=== PATIENT | male | born 1965 | race Caucasian/White ===

== ENCOUNTER 2017-12-20 11:26 | Inpatient (IN) | payer OTHER ==
[~2017-12-20] VITALS: Ht 177.8 cm; Wt 97.7 kg
[~2017-12-20 11:26] MED LIST: AMLODIPINE-BENAZEPRI PO; AUGMENTIN 875-1 EACH PO; MELOXICAM15 MG PO; PREDNISONE50 M1 PO; PRILOSEC OTC20 M1 PO; SERTRALINE HYDR50 MG PO; VENTOLIN HFA18 GM INH
[2017-12-20] MEDS ORDERED: AMLODIPINE BESYL5 M1 PO (11:55)
--- NOTE | 2017-12-20 12:10 | ED CARDIAC/CP/PALPITATIONS ---
History of Present Illness General Chief Complaint: Chest Pain Stated Complaint: CP Source: patient Exam Limitations: no limitations Vital Signs & Intake/Output Vital Signs & Intake/Output Vital Signs Date Time Temp Pulse Resp B/P B/P Pulse O2 O2 Flow FiO2 Mean Ox Delivery Rate 12/20 1723 120 147/88 12/20 1651 103 146/96 12/20 1649 98.8 103 16 146/96 95 Room Air 12/20 1514 113 130/96 12/20 1340 100.8 16 95 Room Air 12/20 1339 116 161/87 12/20 1220 128 140/85 12/20 1151 118 12/20 1136 100.0 139 20 135/83 98 Room Air Allergies Coded Allergies: NO KNOWN ALLERGIES (04/12/15) Reconcile Medications Amlodipine Besylate 5 MG TABLET 1 TAB PO DAILY HEART (Reported) Triage Note: PT TO ED C/O CHEST PAIN SINCE THIS AM. STARTED WHILE LAYING ON COUCH. PAIN IS MIDSTERNAL, NON RADIATING. DENIES N/V. NO SOB OR DIFF BREATHING NOTED. PT STATES HE DRANK YESTERDAY, H/O ETOH ABUSE. EKG DONE, TAKEN TO ROOM 9 FOR FURTHER EVAL. Triage Nurses Notes Reviewed? yes Onset: Gradual Duration: hour(s): Timing: single episode today Quality/Severity: pressure Location: substernal Radiation: no radiation Activities at Onset: rest HPI: 52yo male with hx of alcoholism and DTs, daily tobacco use presents to ED with new onset chest pain beginning this morning around 0830AM. Pain is described substernal, constant since onset, 04/22, pressure, without radiation, arising at rest. Patient reports associated dyspnea today. PAtient also reports diarrhea this morning. Patient also complains of mouth sores for which she has seen a specialist for and was on amoxicillin for 10 days however they have not resolved. Patient states he had a drink yesterday, prior to that he was in remission from alcohol. Patient denies abdominal pain, vomiting, diaphoresis, leg swelling, recent travel, hemoptysis. (Keren ZAMORA,Isabela Galan) Past History Travel History Traveled to [place] past 21 day No Medical History Any Pertinent Medical History? 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 No (Isabela Vazquez) Review of Systems Review of Systems Constitutional: Reports: no symptoms. EENTM: Reports: see HPI. Respiratory: Reports: see HPI. Cardiovascular: Reports: see HPI. GI: Reports: no symptoms. Genitourinary: Reports: no symptoms. Musculoskeletal: Reports: no symptoms. Skin: Reports: no symptoms. Neurological/Psychological: Reports: no symptoms. Hematologic/Endocrine: Reports: no symptoms. Immunologic/Allergic: Reports: no symptoms. All Other Systems: Reviewed and Negative (Isabela Vazquez) Physical Exam Physical Exam General Appearance: well developed/nourished, no apparent distress, alert, awake Head: atraumatic, normal appearance Eyes: Bilateral: normal appearance. Ears, Nose, Throat: hearing grossly normal, ulcerations/vesicles Neck: normal inspection, supple, full range of motion Respiratory: no respiratory distress, wheezing bilaterally, anterior chest tenderness Cardiovascular: tachycardia Peripheral Pulses: 2+ radial (R), 2+ radial (L) Gastrointestinal: normal bowel sounds, soft, non-tender, no organomegaly Rectal: heme positive stool Back: normal inspection, normal range of motion Extremities: normal inspection, normal range of motion Neurologic/Psych: awake, alert, oriented x 3 Skin: intact, warm/dry Core Measures ACS in differential dx? Yes CVA/TIA Diagnosis No Sepsis Present: No Sepsis Focused Exam Completed? No (Isabela Vazquez) Progress Differential Diagnosis: AMI, atrial fibrillation, CHF/pulm edema, costochondritis, musculoskeletal pain, myocarditis, pancreatitis, pericarditis, pneumonia, pneumothorax, PSVT, pulmonary embolism, unstable angina, V-fib/V-Tach , alcohol withdrawal, DT Plan of Care: Orders Procedure Date/time Status Regular Diet 12/20 D Active Patient Data 12/20 1649 Active OXYGEN SETUP (GEN) 12/20 163 Active Saline Lock 12/20 1634 Active Admit to inpatient 12/20 1634 Active Vital Signs 12/20 1634 Active Activity/Ambulation 12/20 1634 Active Code Status 12/20 1634 Active Add-on Test (ER Only) 12/20 1626 Active TROPONIN LEVEL 12/20 1515 Complete EKG 12/20 1515 Active Add-on Test (ER Only) 12/20 1222 Active CIWA 12/20 1222 Active URINE DRUG SCREEN FOR ER ONLY 12/20 1222 Complete PARTIAL THROMBOPLASTIN TIME 12/20 1212 Complete PROTHROMBIN TIME 12/20 1212 Complete ETHANOL 12/20 1212 Complete Telemetry/Verifying Machine Operator 12/20 1207 Active TROPONIN LEVEL 12/20 1206 Complete D-DIMER 12/20 1206 Complete COMPREHENSIVE METABOLIC PANEL 12/20 1206 Complete CBC WITHOUT DIFFERENTIAL 12/20 1206 Complete Intake & Output 12/20 1149 Active EKG 12/20 1127 Active Current Medications Sig/[place] Start time Last Medication Dose Stop Time Status Admin Heparin Sodium 25,000 UNIT Q24H 12/20 1645 AC 12/20 (Porcine) 1722 (Heparin) Sodium Chloride 500 ML Heparin Sodium 4,000 UNIT ONCE ONE 12/20 1630 CAN (Porcine) 12/20 1631 (Heparin Bolus) Clonidine 0.1 MG TID 12/20 1600 AC 12/20 (Catapres) 1651 Gabapentin 300 MG Q8 12/20 1400 AC 12/20 (Neurontin) 1404 Laboratory Tests 12/20/17 1515: Troponin I 0.13 *H 12/20/17 1427: Urine Opiates Screen < 100, Methadone Screen < 40, Barbiturate Screen < 60, Ur Phencyclidine Scrn < 6.00, Amphetamines Screen < 100, U Benzodiazepines Scrn < 85, Urine Cocaine Screen < 50, Urine Cannabis Screen < 5.00 12/20/17 1212: Anion Gap 15, Estimated GFR > 60, BUN/Creatinine Ratio 24.3, Glucose 177 H, Calcium 9.4, Total Bilirubin 1.7 H, AST 53, ALT 47, Alkaline Phosphatase 99, Troponin I 0.07, Total Protein 7.1, Albumin 4.2, Globulin 2.9, Albumin/Globulin Ratio 1.4, PT 11.3, INR 1.04, APTT 30, D-Dimer High Sensitivty 295 H, CBC w Diff NO MAN DIFF REQ, RBC 4.82, MCV 96.2 H, MCH 32.9 H, MCHC 34.2, RDW 14.6 H , MPV 7.7, Gran % 88.0 H, Lymphocytes % 4.5 L, Monocytes % 7.3, Eosinophils % 0.1, Basophils % 0.1, Absolute Granulocytes 11.4 H, Absolute Lymphocytes 0.6 L , Absolute Monocytes 0.9 H, Absolute Eosinophils 0, Absolute Basophils 0, Serum Alcohol < 10.0 Patient EKG shows nonspecific changes and leads V1 -2, troponin enzyme is negative. EKG reviewed with Dr. Rodriguez. Patient's d-dimer is slightly elevated, will obtain CTA to further rule out pulmonary embolism. Initial CIWA score is 11, patient given Ativan IV, started on clonidine and gabapentin per Dr. Rodriguez. CTA is negative for acute pulmonary embolism at this time. Patient reports improvement in chest pain from 8/10 to 6/10 following 1 SL nitroglycerin, patient seen sleeping while awaiting test results. Patient requesting food tray. Repeat troponin shows elevation from 0.07 to 0.13. Awaiting cardiology page. Spoke with cardiology Aries Kenyon MD regarding this patient, he recommends heparin and aspirin. Stool is guaiac positive however patient's coags are normal, we will initiate heparin at this time. Dr. Rodriguez spoke with hospitalist regarding this patient's telemetry admission. Diagnostic Imaging: Viewed by Me: Radiology Read. Discussed w/RAD: Radiology Read. CXR Impression: PATIENT: CHIDI BA PRESENT AGE: 52 PATIENT ACCOUNT NO: [id number] : 67 LOCATION: [facility] ORDERING PHYSICIAN: Isabela ZAMORA SERVICE DATE: 12/20/17 EXAM TYPE: RAD - XRY-CHEST XRAY, TWO VIEWS EXAMINATION: XR CHEST CLINICAL INFORMATION: Chest pain. Assess for cardiopulmonary pathology. COMPARISON: Chest x-ray 12/03/2017. TECHNIQUE: 2 views of the chest were obtained. FINDINGS: The lung kulkarni are hypoexpanded but appear clear bilaterally. The cardiac silhouette is normal. There are no pleural effusions or pneumothorax. The central pulmonary vasculature is normal. The hilar regions appear normal. There are degenerative changes of the acromioclavicular joints and there are multilevel spondylitic changes in the thoracic spine. IMPRESSION: 1. There are no acute cardiopulmonary findings. DICTATED BY: Darion Sales MD DATE/TIME DICTATED:12/20/171334 ANESTHESIOLOGY TECHNOLOGIST :REBECCA DATE/TIME TRANSCRIBED:12/20/171334 CONFIDENTIAL, DO NOT COPY WITHOUT APPROPRIATE AUTHORIZATION. <Electronically signed in Other Vendor System> SIGNED BY: Darion Sales MD 12/20/17 1349 Initial ED EKG: sinus tachycardia @135bpm, ST changes V1-V2 Prior EKG: changed (12/03/17) Repeat EKG: changed (slight ST changes V1-V2) (Isabela Vazquez) Departure Departure Disposition: STILL A PATIENT Condition: Stable Clinical Impression Primary Impression: Acute coronary syndrome Secondary Impressions: Alcohol withdrawal Qualifiers: Complication of substance-induced condition: with unspecified complication Qualified Code: F10.239 - Alcohol dependence with withdrawal, unspecified Chest pain Qualifiers: Chest pain type: chest pain due to myocardial ischemia Ischemic chest pain type: unspecified angina pectoris type Qualified Code: I25.9 - Chronic ischemic heart disease, unspecified Hard palate ulcer Referrals: Niles Abdi MD Departure Forms: Customer Survey General Discharge Information Admission Note Spoke With: Tammie Jean-Baptiste MD Documentation of Exam: Documentation of any treatments & extenuating circumstances including Concerns Regarding Discharge (functional status, medication knowledge or non-compliance, living conditions, etc.) that warrant an admission rather than observation: [ Acute coronary syndrome requiring IV heparinization, telemetry monitoring, cardiology consult, repeat troponins and EKGs, alcohol withdrawal requiring CIWA evaluation, premature discharge medically unsafe] (Isabela Vazquez) PA/FEED MIXER HELPER Co-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 I have also reviewed all the pertinent lab results and diagnostic results. I agree with the findings and the plan of care as documented in the PA's/FEED MIXER HELPER's documentation. SSCP, PMHx HTN, alcoholism with + troponin, EKG changes and withdrawal [] I have reviewed the ED Record and agree with the PA's/FEED MIXER HELPER's documentation. [] Additions or exceptions (if any) to the PAs/FEED MIXER HELPER's note and plan are summarized below: [] (Orlando GARCIA,Jamel) Critical Care Note Critical Care Note Critical Care Time: 30-74 min (Isabela Vazquez)
[2017-12-20 12:23] LABS: ABSOLUTE BASOPHIL COUNT 0 /CUMM (0.0-0.2); ABSOLUTE EOSINOPHIL COUNT 0 /CUMM (0.0-0.7); ABSOLUTE GRANULOCYTE CT 11.4 /CUMM (1.4-6.5); ABSOLUTE LYMPH COUNT 0.6 /CUMM (1.2-3.4); ABSOLUTE MONOCYTE COUNT 0.9 /CUMM (0.10-0.60); BASOPHIL % 0.1 % (0.0-2.0); EOSINOPHIL % 0.1 % (0-5); HEMATOCRIT 46.4 % (42-52); MEAN CORPUSCULAR HGB 32.9 PG (27.0-31.0); MEAN CORPUSCULAR HGB CONC 34.2 G/DL (33.0-37.0); MEAN CORPUSCULAR VOLUME 96.2 FL (80.0-94.0); MEAN PLATELET VOLUME 7.7 FL (7.4-10.4); PLATELET COUNT 273 /CUMM (130-400); RBC DISTRIBUTION WIDTH 14.6 % (11.5-14.5); RED BLOOD CELL CT 4.82 /CUMM (4.70-6.10); WHITE BLOOD CELL COUNT 12.9 /CUMM (4.8-10.8)
--- NOTE | 2017-12-20 13:49 | RADIOLOGY REPORT ---
EXAMINATION: XR CHEST CLINICAL INFORMATION: Chest pain. Assess for cardiopulmonary pathology. COMPARISON: Chest x-ray 12/03/2017. TECHNIQUE: 2 views of the chest were obtained. FINDINGS: The lung kulkarni are hypoexpanded but appear clear bilaterally. The cardiac silhouette is normal. There are no pleural effusions or pneumothorax. The central pulmonary vasculature is normal. The hilar regions appear normal. There are degenerative changes of the acromioclavicular joints and there are multilevel spondylitic changes in the thoracic spine. IMPRESSION: 1. There are no acute cardiopulmonary findings.
--- NOTE | 2017-12-20 14:40 | CT SCAN REPORT ---
EXAMINATION: CT ANGIOGRAM OF THE CHEST WITH AND WITHOUT CONTRAST (CT PULMONARY ANGIOGRAM FOR PE) CLINICAL INFORMATION: Reason for Study:
Presumptive Dx: R/O PE
Signs Symptoms: CHEST PAIN, DYSPNEA
COMPARISON: Chest x-ray done today (no acute disease) and CTA of the chest on 12/03/2016. (No pulmonary emboli). TECHNIQUE: Prior to contrast administration, noncontrast localization images were obtained. Subsequently, multidetector volumetric imaging was performed from the thoracic inlet to below the diaphragms following the administration of 95 mL Optiray 320 intravenous contrast. No contrast reaction reported. Sagittal, coronal, and MIP oblique sagittal reformatted images were obtained on the CT workstation, uploaded to PACS, and reviewed. Total exam dose-length product 500 mGy-cm. FINDINGS: QUALITY OF STUDY/CONTRAST BOLUS: Less than satisfactory due to the levo phase of the injection. (Similar to last exam on 12/03/2017). PULMONARY ARTERIES: No central or segmental pulmonary emboli. THORACIC AORTA: Bovine arch. LUNG: No focal consolidation, nodules or masses. PLEURA: No pleural effusion or pneumothorax. MEDIASTINUM: Normal heart size. No pericardial effusion. No hilar or mediastinal lymphadenopathy. No evidence of septal bowing or right heart strain. CHEST WALL/AXILLA: No axillary or internal mammary lymphadenopathy. OSSEOUS STRUCTURES: Again there are bridging osteophytes of the lower thoracic spine to the right midline. Nucleus pulposus is calcified at the level of T8-T9. UPPER ABDOMEN: Again there is diffuse fatty infiltration of liver. No reflux of contrast into the hepatic veins to suggest elevated right heart pressures. IMPRESSION: No evidence of pulmonary embolism. Fatty infiltration of the liver as before. VTE: Negative.
[2017-12-20 16:48] LABS: PT 11.3 SEC (9.4-12.5); PTT 30 SEC (25-37)
--- NOTE | 2017-12-20 16:56 | History & Physical ---
Brandon GARCIA,[facility] 12/20/17 0066: General Information and HPI MD Statement: I have seen and personally examined CHIDI BA and documented this H&P. The patient is a 52 year old M who presented with a patient stated chief complaint of [chest pain]. History of Present Illness: 52-year-old male with a past medical history of alcohol abuse, hypertension, depression, presenting for chest pain. The patient states that he woke up fine this morning but then had an sudden onset of sternal chest pain. The patient states that the chest pain was continued until he got to the emergency department which is now intermittent. The patient describes as sharp and worse with breathing. States he never had this before. States that the pain is a 6-8 but right now it does not have any pain as the medications given the ED have help with the pain. The patient states that he does not have a history of any myocardial infarctions. He does state that he has a history of an echo for possible valvular issues. The patient endorses feeling tachycardic, shortness of breath, slight fever, loose black stools with mucus. The patient denies any chills, blurry vision. The patient states that he stopped smoking 3-1/2 years ago but restarted smoking in October. Since October he's been smoking half pack per day. His previous smoking history was also half pack per day for 35 years. The patient states that he stopped using alcohol in September was started using again yesterday and today. States that he had 1 pint of vodka yesterday. The patient states that he has never withdrawn before. States that he has had one prior admission for alcohol detox several years back. The patient states that 12 days ago he was treated with amoxicillin for strep throat. The patient finished his 10 day course of antibiotics. States that he has had these upper hard palate ulcers due to postnasal drip. States that he only has one sexual partner and denies any recent penile discharge. 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 Exam & Diagnostic Data Last 24 Hrs of Vital Signs/I&O Vital Signs Date Time Temp Pulse Resp B/P B/P Pulse O2 O2 Flow FiO2 Mean Ox Delivery Rate 12/20 1851 98.4 104 18 135/85 96 12/20 1827 103 12/20 1748 111 12/20 1723 120 147/88 12/20 1651 103 146/96 12/20 1649 98.8 103 16 146/96 95 Room Air 12/20 1514 113 130/96 12/20 1340 100.8 16 95 Room Air 12/20 1339 116 161/87 12/20 1220 128 140/85 12/20 1151 118 12/20 1136 100.0 139 20 135/83 98 Room Air Intake & Output 12/20 1600 12/20 0800 12/20 0000 Intake Total 1000 Output Total 500 Balance 500 Intake, IV 1000 Output, Urine 500 Patient 200 lb Weight Weight Reported by Patient Measurement Method Physical Exam General Appearance Alert, Oriented X3, Cooperative, No Acute Distress Skin R frontal head bruise HEENT b/l upper hard palate ulcers. 1.5x1cm b/l. white base. Neck no lymphadenoapthy Cardiovascular tachycardia Lungs Clear to Auscultation, Normal Air Movement Abdomen decreased bowel sounds Neurological cn2-12 grossly intact Extremities no LE edema Vascular 2+ radial pulses Assessment/Plan Assessment: 52-year-old male with a past medical history of alcohol abuse, hypertension, depression, presenting for chest pain with elevated troponins. #NSTEMI: Chest pain with elevated troponins Trop .07, .13 -trop ekg x3 -Continue IV heparin, aspirin, atorvastatin, pain control, metoprolol -cont nitro -Follow-up cardiology consult #alcohol detox Utox negative -CIWA and ativan per CIWA -f/u psych and sw consult #oral ulcers -Continue to monitor for any signs of infection. -Appears to be necrotizing sialometaplasia due to allergies/post nasal drip -start lidocaine oral rinse #Elevated T bili T bili 1.7, direct 0.5, LFTs normal -cont to monitor #htn -start clonidine #hyperglycemia glucose 177 -f/u hgba1c #leukocytosis 12.9 -possibly reactive vs infxn of mouth -cont to monitor #mild hyponatremia 133 -cont to monitor #FULL CODE #DVT ppx heparin drip As Ranked By This Provider Problem List: 1. Alcohol withdrawal Qualifiers Complication of substance-induced condition: with unspecified complication Qualified Code: F10.239 - Alcohol dependence with withdrawal, unspecified 2. Acute coronary syndrome 3. Hard palate ulcer Core Measures/Misc (05/30) Acute Coronary Syndrome ACS Diagnosis: Yes Congestive Heart Failure Congestive Heart Failure Diagnosis No Cerebrovascular Accident CVA/TIA Diagnosis: No VTE (View Protocol) VTE Risk Factors No risk factors No Mechanical VTE Prophylaxis d/t Other No VTE Pharm Prophylaxis d/t NA PharmProphylax ordered Sepsis (View protocol) Sepsis Present: No [facility] 1931: Resident Review Statement Resident Statement: examined this patient, discussed with paid internship, agreed with paid internship, discussed with nursing Other Findings: Patient is a 52-year-old male with past medical history significant for hypertension, alcohol dependence who presented to ED with chief complaint of sudden onset chest pain. Patient reported sudden onset of sharp retrosternal chest pain while resting on the couch, does not radiate to the left arm or jaw, associated with shortness of breath and palpitation but no diaphoresis. Patient denied any prior history of similar pain. Reported having echocardiogram years ago for "abnormal valvular movement" with negative results. Patient reported one episode of black watery stool yesterday, not associated with abdominal pain, nausea or vomiting. He also reported recent strep throat infection 12 days ago, was treated as an outpatient with amoxicillin for 10 days , patient has new onset developing hard palate ulcers, 1.5/1 cm, bleeding with purulent discharge that started 12 days ago. Patient reported improvement of his symptoms. Patient denied any past history of similar mouth ulcers, history of penile discharge or genital ulcer, STDs, multiple sexual partners. Patient last alcohol drinking was yesterday, he drank 1 pint of vodka. He quit drinking in September 2017 (detoxing himself )however restarted 2 days ago. Denied any history of TDs, alcohol-related seizures, ICU admission for alcohol detox or any previous intubation. Assessment 52-year-old male with past medical history of alcohol dependence and hypertension who presented with sudden onset of chest pain, initial troponin is 0.07 that trended up to 0.13 with new EKG changes of minimal ST elevation in lead V1, V2 and V3 with QRS prolongation V1 and V2 suspicious for new onset left bundle branch block. Patient symptoms improved with nitroglycerin and morphine. 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 -Patient has mildly elevated total bilirubin 1.7, will obtain direct and indirect bilirubin -Consider obtaining abdominal ultrasound -CIWA score -Ativan 2 mg Q6 hours -Ativan per CIWA -Thiamine 100 mg IV 3 days and then thiamine p.o. 100 mg 3 times daily for 1 week -1 bag of normal saline, patient is mildly dehydrated -Lidocaine viscous liquid for mouth ulcer -Code full -DVT prophylaxis heparin IV and Alps -Diet heart healthy #I spoke with the range technician on-call Dr. Oliveira after we received third tropes elevated to 0.21 from 0.13, EKG continue to be the same, patient remained Asymptomatic after receiving nitroglycerin and morphine. Recommendation to keep patient on IV heparin since he is asymptomatic with no further EKG changes. Tammie Jean-Baptiste MD 12/20/17 2226: Attending MD Review Statement Attending Statement Attending MD Statement: examined this patient, discuss w/resident/PA/MANAGER CASE, agreed w/resident/PA/MANAGER CASE, reviewed EMR data (avail) Attending Assessment/Plan: 52M PMH HTN, alcohol use disorder presenting with chest pain at rest since this morning. Mid-sternal, non-radiating, 7/10, associted with diaphoresis but not SOB or palpitations, not worse wiwth exertion. No family or personal history of CAD, active smoker. Showing signs of agitation and alcohol withdrawal. EKG shows non-specific changes with widening of QRS in anterior leads and questionable ST elevations. Troponin 0.13. Also complains of painful sores on hard palate. 1. NSTEMI 2. Alcohol withdrawal, uncomplicated 3. Aphthous ulcers of the hard palate Plan - Admit to telemetry - ASA, statin, b-aide - Heparin drip - Echocardiogram - Cardiology consult - Ativan PRN CIWA - SL Nitro - Send HSV 1 and 2 antibodies - Continue home meds - DVT PPx
[2017-12-20 21:57] VITALS: BP 136/83
[2017-12-20 22:00] VITALS: BP 136/83
[2017-12-21 01:53] LABS: PTT 31 SEC (25-37)
--- NOTE | 2017-12-21 07:11 | PN- Housestaff ---
Rian GARCIA,Valentin 12/21/17 0711: Subjective Follow-up For: ACS Alcohol withdrawal oral ulcer Tele-Events Since Last Visit: unable to access recorded telemetry monitoring in ED, per nurse, NSR Subjective: Patient was seen and examined at bedside. He was resting comfortably. He had no acute events overnight. He reports that the chest discomfort which she describes as a tightness significantly improved although not completely resolved , he currently described as mild and upon presentation it was severe. He also reports mild pain in his mouth at the site of the ulcer. He denies any shortness of breath, nausea, vomiting, fever, chills. Review of Systems Constitutional: Denies: chills, malaise. EENTM: Reports: no symptoms, mouth pain. Cardiovascular: Reports: see HPI, chest pain (mild tightness). Respiratory: Denies: cough, short of breath. Gastrointestinal: Reports: no symptoms. Genitourinary: Reports: no symptoms. Musculoskeletal: Reports: no symptoms. Skin: Reports: no symptoms. Objective Last 24 Hrs of Vital Signs/I&O Vital Signs Date Time Temp Pulse Resp B/P B/P Pulse O2 O2 Flow FiO2 Mean Ox Delivery Rate 12/20 2200 98.7 102 21 136/83 12/20 2157 98.7 102 21 136/83 94 Room Air 12/20 2141 105 136/83 12/20 2141 105 136/83 12/20 1851 98.4 104 18 135/85 96 12/20 1827 103 12/20 1748 111 12/20 1723 120 147/88 12/20 1651 103 146/96 12/20 1649 98.8 103 16 146/96 95 Room Air 12/20 1514 113 130/96 12/20 1340 100.8 16 95 Room Air 12/20 1339 116 161/87 12/20 1220 128 140/85 12/20 1151 118 12/20 1136 100.0 139 20 135/83 98 Room Air Intake & Output 12/21 0800 12/21 0000 12/20 1600 Intake Total 595 1000 Output Total 500 Balance 595 500 Intake, IV 255 1000 Intake, Oral 340 Output, Urine 500 Patient 200 lb 200 lb Weight Weight Reported by Patient Reported by Patient Measurement Method Physical Exam General Appearance: Oriented X3, Cooperative, No Acute Distress, slightly lethargic, able to answer questions appropriately HEENT: ecchymosis on the R forehead, ulceration of the hard palate Neck: Supple, No JVD Cardiovascular: Regular Rate, Normal S1, Normal S2 Lungs: Clear to Auscultation, Normal Air Movement Abdomen: Normal Bowel Sounds, Soft, No Tenderness Neurological: Normal Speech, Strength at 5/5 X4 Ext, Normal Tone, Sensation Intact, Cranial Nerves 3-12 NL Extremities: No Clubbing, No Cyanosis, No Edema Current Medications: Current Medications Sig/[place] Start time Last Medication Dose Route Stop Time Status Admin Aspirin 81 MG DAILY 12/21 1000 AC PO Aspirin 325 MG ONCE ONE 12/20 1630 DC 12/20 PO 12/20 1631 1651 Atorvastatin Calcium 40 MG 1700 12/20 1845 AC 12/20 PO 2026 Clonidine 0 .STK-MED ONE 12/20 2133 DC PO Clonidine 0.1 MG TID 12/20 1600 AC 12/20 PO 2141 Gabapentin 0 .STK-MED ONE 12/21 0641 DC PO Gabapentin 0 .STK-MED ONE 12/20 2131 DC PO Gabapentin 0 .STK-MED ONE 12/20 1407 DC PO Gabapentin 300 MG Q8 12/20 1400 AC 12/21 PO 0651 Heparin Sodium 0 .STK-MED ONE 12/21 0237 DC (Porcine) .ROUTE Heparin Sodium 5,500 UNIT ONCE ONE 12/21 0230 DC 12/21 (Porcine) IV 12/21 0231 0237 Heparin Sodium 0 .STK-MED ONE 12/20 1708 DC (Porcine) .ROUTE Heparin Sodium 5,000 UNIT ONCE ONE 12/20 1645 DC 12/20 (Porcine) IV 12/20 1646 1723 Heparin Sodium 25,000 UNIT Q24H 12/20 1645 AC 12/20 (Porcine) IV 1722 Sodium Chloride 500 ML Heparin Sodium 4,000 UNIT ONCE ONE 12/20 1630 CAN (Porcine) IV 12/20 1631 Heparin Sodium/ 25,000 UNIT Q24H 12/20 1630 DC Dextrose IV Dextrose/Water 500 ML Lidocaine 15 ML BID 12/20 2200 AC PO Lidocaine 0 .STK-MED ONE 12/20 2135 DC PO Lidocaine 0 .STK-MED ONE 12/20 1708 DC PO Lidocaine 15 ML ONCE ONE 12/20 1700 DC 12/20 PO 12/20 1701 1723 Lorazepam 0 .STK-MED ONE 12/21 0642 DC PO Lorazepam 0 .STK-MED ONE 12/20 2359 DC PO Lorazepam 2 MG Q6 12/20 1845 AC 12/21 PO 0651 Lorazepam 0 Q1P PRN 12/20 1845 AC IV Lorazepam 0 .STK-MED ONE 12/20 1256 DC .ROUTE Lorazepam 1 MG ONCE ONE 12/20 1245 DC 12/20 IV 12/20 1246 1254 Metoprolol Tartrate 25 MG BID 12/20 2200 AC 12/20 PO 2141 Metoprolol Tartrate 0 .STK-MED ONE 12/20 2134 DC PO Metoprolol Tartrate 0 .STK-MED ONE 12/20 1708 DC PO Metoprolol Tartrate 25 MG ONCE ONE 12/20 1700 DC 12/20 PO 12/20 1701 1723 Morphine Sulfate 2 MG Q4P PRN 12/20 1830 AC IV Morphine Sulfate 0 .STK-MED ONE 12/20 1708 DC .ROUTE Morphine Sulfate 4 MG ONCE ONE 12/20 1700 DC 12/20 IV 12/20 1701 1723 Nitroglycerin 0.4 MG Q 5 MINUTES X 3 DO.. 12/20 1845 AC SL Nitroglycerin 0.4 MG ONCE ONE 12/20 1630 DC 12/20 SL 12/20 1631 1652 Nitroglycerin 0 .STK-MED ONE 12/20 1456 DC SL Nitroglycerin 0.4 MG ONCE ONE 12/20 1445 DC 12/20 SL 12/20 1446 1451 Sodium Chloride 1,000 ML .[id number] 12/20 1830 AC 12/20 IV 12/21 0749 1858 Sodium Chloride 1,000 ML BOLUS ONE 12/20 1315 DC 12/20 IV 12/20 1514 1310 Thiamine HCl 100 MG 2100 12/20 2100 AC 12/20 Sodium Chloride 50 ML IV 12/22 2159 2141 Last 24 Hrs of Lab/Yash Results Last 24 Hrs of Labs/Mics: Laboratory Tests 12/21/17 0607: Sodium Pending, Potassium Pending, Chloride Pending, Carbon Dioxide Pending, Anion Gap Pending, BUN Pending, Creatinine Pending, BUN/Creatinine Ratio Pending , Troponin I Pending, APTT Pending, CBC w Diff Pending, WBC Pending, RBC Pending , Hgb Pending, Hct Pending, MCV Pending, MCH Pending, MCHC Pending, RDW Pending, Plt Count Pending, MPV Pending 12/21/17 0053: Troponin I 0.21 *H, APTT 31 12/20/17 1840: Troponin I 0.21 *H 12/20/17 1515: Total Bilirubin 1.6 H, Direct Bilirubin 0.5 H, Troponin I 0.13 *H 12/20/17 1427: Urine Opiates Screen < 100, Methadone Screen < 40, Barbiturate Screen < 60, Ur Phencyclidine Scrn < 6.00, Amphetamines Screen < 100, U Benzodiazepines Scrn < 85, Urine Cocaine Screen < 50, Urine Cannabis Screen < 5.00 12/20/17 1212: Anion Gap 15, Estimated GFR > 60, BUN/Creatinine Ratio 24.3, Glucose 177 H, Calcium 9.4, Total Bilirubin 1.7 H, AST 53, ALT 47, Alkaline Phosphatase 99, Troponin I 0.07, Total Protein 7.1, Albumin 4.2, Globulin 2.9, Albumin/Globulin Ratio 1.4, PT 11.3, INR 1.04, APTT 30, D-Dimer High Sensitivty 295 H, CBC w Diff NO MAN DIFF REQ, RBC 4.82, MCV 96.2 H, MCH 32.9 H, MCHC 34.2, RDW 14.6 H , MPV 7.7, Gran % 88.0 H, Lymphocytes % 4.5 L, Monocytes % 7.3, Eosinophils % 0.1, Basophils % 0.1, Absolute Granulocytes 11.4 H, Absolute Lymphocytes 0.6 L , Absolute Monocytes 0.9 H, Absolute Eosinophils 0, Absolute Basophils 0, Serum Alcohol < 10.0 Orders CIWA Score (last 24 hrs): 2-11 Assessment/Plan Assessment: Patient is a 52-year-old male with a PMH significant for alcohol use disorder, HTN, depression and presented to the [facility] ED with chest pain, described as a tightness and severe in nature. #NSTEMI Troponins elevated, 0.07, 0.13, 0.21, 0.21, 0.52, patient was put on IV heparin last night after consulting cardiology -Continue IV heparin, aspirin, statin, nitroglycerin, metoprolol -Trend troponin until peaked -Follow cardiology recommendations #Alcohol use disorder, with alcohol withdrawal -Continue CIWA protocol -Follow-up psych and social work consults #Hypokalemia -Repleted orally -Continue to Follow BEP #guaiac + stool -GI consult #HTN Clotted started yesterday -Continue current regimen and monitor BEP closely #Hyperglycemia -Follow-up hemoglobin A1c #Oral ulcer -Continue pain management with lidocaine oral rinse #Hyponatremia, resolved #Leukocytosis, resolved Diet: Nothing by mouth pending cardiology evaluation DVT prophylaxis: Heparin CODE STATUS: Full code Problem List: 1. Hard palate ulcer 2. Acute coronary syndrome 3. Alcohol withdrawal Pain Ratin Pain Location: chest Pain Goal: Pain 4 or less Pain Plan: pain pathway Tomorrow's Labs & Rationales: cbc, bep, trop (trend until peaked) Tammie Jean-Baptiste MD 12/21/17 1056: Attending MD Review Statement Attending Statement Attending MD Statement: examined this patient, discuss w/resident/PA/[employer], agreed w/resident/PA/[employer] TE[employer]ER, reviewed EMR data (avail) Attending Assessment/Plan: 52M PMH HTN, alcohol use disorder presenting with chest pain at rest since this morning. Mid-sternal, non-radiating, 7/, associted with diaphoresis but not SOB or palpitations, not worse wiwth exertion. No family or personal history of CAD, active smoker. Showing signs of agitation and alcohol withdrawal. EKG shows non-specific changes with widening of QRS in anterior leads and questionable ST elevations. Also complains of painful sores on hard palate. Pain is improved. Troponin continues to trend up. No further EKG changes. K is 3.0 today. 1. NSTEMI 2. Alcohol withdrawal, uncomplicated 3. Aphthous ulcers of the hard palate Plan - Continue on telemetry - Aggressively replete potassium, goal >4.0 - ASA, statin, b-aide - Heparin drip - Echocardiogram - Cardiology consult - Ativan PRN CIWA - SL Nitro - Follow up HSV 1 and 2 antibodies - Lidocaine rinse for mouth pain - Continue home meds - DVT PPx
[2017-12-21 07:17] VITALS: BP 129/90
[2017-12-21 07:56] LABS: ABSOLUTE BASOPHIL COUNT 0 /CUMM (0.0-0.2); ABSOLUTE EOSINOPHIL COUNT 0.1 /CUMM (0.0-0.7); ABSOLUTE GRANULOCYTE CT 5.8 /CUMM (1.4-6.5); ABSOLUTE LYMPH COUNT 1.2 /CUMM (1.2-3.4); ABSOLUTE MONOCYTE COUNT 0.6 /CUMM (0.10-0.60); BASOPHIL % 0.4 % (0.0-2.0); EOSINOPHIL % 1.5 % (0-5); GRANULOCYTE % 74.7 % (42.2-75.2); HEMATOCRIT 44.9 % (42-52); MEAN CORPUSCULAR HGB CONC 33.8 G/DL (33.0-37.0); MEAN CORPUSCULAR VOLUME 97.7 FL (80.0-94.0); MEAN PLATELET VOLUME 8.4 FL (7.4-10.4); PLATELET COUNT 203 /CUMM (130-400); RBC DISTRIBUTION WIDTH 14.8 % (11.5-14.5); WHITE BLOOD CELL COUNT 7.8 /CUMM (4.8-10.8)
[2017-12-21 08:33] LABS: PTT > 120 SEC (25-37)
[2017-12-21 08:54] VITALS: BP 134/88
--- NOTE | 2017-12-21 09:13 | Cons- Cardiology ---
General Information and HPI Consulting Request Date of Consult: 12/21/17 Requested By: Tammie Jean-Baptiste MD Reason for Consult: Chest pain positive troponins Source of Information: patient Exam Limitations: poor historian History of Present Illness: The patient is a 52-year-old male with a history of alcohol abuse, hypertension, nicotine dependence, and depression who presents with chest pain. Patient states that he awoke yesterday morning and then developed substernal chest discomfort. He now describes 2 different discomforts one as a sharp stabbing feeling the other is described as a heaviness as if an elephant is sitting on his chest.(In reviewing the records he did not describe the heaviness previously.) He states that the sharp pain was worse with movement and breathing. He denies any prior episodes of chest pain. He reportedly was seen by Dr. Hanna a number years ago at [facility] where he was told he had some valvular disease. The details are unavailable. The patient states that the pain persisted and therefore he presented to the emergency room for evaluation. Of note is that the patient has a history of alcohol abuse and has had DTs in the past. He reportedly stopped drinking but recently resumed and drank a pint of vodka on the day prior to admission. He also started smoking again. He notes that while at home he did begin shaking as he has in the past with his DTs. He recently was treated with amoxicillin for strep throat but finished his 10 day course. He recently also noted a ulcer and the roof of his mouth. He describes a feeling of his heart racing along with shortness of breath and has noted loose black tarry stools which were heme positive in the emergency room. He currently denies chest pain or shortness of breath but does feel "shaky". Allergies/Medications Allergies: Coded Allergies: NO KNOWN ALLERGIES (04/12/15) Home Med List: Amlodipine Besylate 5 MG TABLET 1 TAB PO DAILY HEART (Reported) Current Medications: Current Medications Sig/[place] Start time Last Medication Dose Route Stop Time Status Admin Aspirin 81 MG DAILY 12/21 1000 AC PO Aspirin 325 MG ONCE ONE 12/20 1630 DC 12/20 PO 12/20 1631 1651 Atorvastatin Calcium 40 MG 1700 12/20 1845 AC 12/20 PO 2025 Clonidine 0 .STK-MED ONE 12/203 DC PO Clonidine 0.1 MG TID 12/20 1600 AC 12/20 PO 2141 Gabapentin 0 .STK-MED ONE 12/21 0641 DC PO Gabapentin 0 .STK-MED ONE 12/20 2131 DC PO Gabapentin 0 .STK-MED ONE 12/20 1407 DC PO Gabapentin 300 MG Q8 12/20 1400 AC 12/21 PO 0651 Heparin Sodium 0 .STK-MED ONE 12/21 0237 DC (Porcine) .ROUTE Heparin Sodium 5,500 UNIT ONCE ONE 12/21 0230 DC 12/21 (Porcine) IV 12/21 0231 0237 Heparin Sodium 0 .STK-MED ONE 12/20 1708 DC (Porcine) .ROUTE Heparin Sodium 5,000 UNIT ONCE ONE 12/20 1645 DC 12/20 (Porcine) IV 12/20 1646 1723 Heparin Sodium 25,000 UNIT Q24H 12/20 1645 AC 12/20 (Porcine) IV 1722 Sodium Chloride 500 ML Heparin Sodium 4,000 UNIT ONCE ONE 12/20 1630 CAN (Porcine) IV 12/20 1631 Heparin Sodium/ 25,000 UNIT Q24H 12/20 1630 DC Dextrose IV Dextrose/Water 500 ML Lidocaine 15 ML BID 12/20 2200 AC PO Lidocaine 0 .STK-MED ONE 12/20 2135 DC PO Lidocaine 0 .STK-MED ONE 12/20 1708 DC PO Lidocaine 15 ML ONCE ONE 12/20 1700 DC 12/20 PO 12/20 1701 1723 Lorazepam 0 .STK-MED ONE 12/21 0642 DC PO Lorazepam 0 .STK-MED ONE 12/20 2359 DC PO Lorazepam 2 MG Q6 12/20 1845 AC 12/21 PO 0651 Lorazepam 0 Q1P PRN 12/20 1845 AC IV Lorazepam 0 .STK-MED ONE 12/20 1256 DC .ROUTE Lorazepam 1 MG ONCE ONE 12/20 1245 DC 12/20 IV 12/20 1246 1254 Metoprolol Tartrate 50 MG BID 12/21 1000 AC PO Metoprolol Tartrate 25 MG BID 12/20 2200 DC 12/20 PO 2141 Metoprolol Tartrate 0 .STK-MED ONE 12/20 2134 DC PO Metoprolol Tartrate 0 .STK-MED ONE 12/20 1708 DC PO Metoprolol Tartrate 25 MG ONCE ONE 12/20 1700 DC 12/20 PO 12/20 1701 1723 Morphine Sulfate 2 MG Q4P PRN 12/20 1830 AC IV Morphine Sulfate 0 .STK-MED ONE 12/20 1708 DC .ROUTE Morphine Sulfate 4 MG ONCE ONE 12/20 1700 DC 12/20 IV 12/20 1701 1723 Nitroglycerin 0.4 MG Q 5 MINUTES X 3 DO.. 12/20 1845 AC SL Nitroglycerin 0.4 MG ONCE ONE 12/20 1630 DC 12/20 SL 12/20 1631 1652 Nitroglycerin 0 .STK-MED ONE 12/20 1456 DC SL Nitroglycerin 0.4 MG ONCE ONE 12/20 1445 DC 12/20 SL 12/20 1446 1451 Sodium Chloride 1,000 ML .[id number] 12/20 1830 DC 12/20 IV 12/21 0749 1858 Sodium Chloride 1,000 ML BOLUS ONE 12/20 1315 DC 12/20 IV 12/20 1514 1310 Thiamine HCl 100 MG 2100 12/20 2100 AC 12/20 Sodium Chloride 50 ML IV 12/22 2159 2141 Review of Systems Review of Systems: Eyes no blurred or double vision Ears no deafness or ringing Nose and throat as per history of present illness Lungs per history of present illness Heart per history of present illness Abdomen no nausea vomiting black tarry stools Musculoskeletal occasional muscle and joint pains Psych history of depression depression Neuro without recurrent headache or seizures history of alcohol withdrawal Endocrine no heat or cold intolerance Past History Travel History Traveled to [place] past 21 day No Medical History Blood Transfusion Hx: No Neurological: NONE EENT: NONE Cardiovascular: hypertension Respiratory: NONE Gastrointestinal: NONE Hepatic: NONE Renal: NONE Musculoskeletal: TENDINITIS Psychiatric: alcohol dependence, depression Endocrine: NONE Blood Disorders: NONE Cancer(s): NONE CHICKEN BONER/Reproductive: NONE Surgical History Surgical History: non-contributory Psychosocial History Where Do You Live? Home Smoking Status: Current Everyday Smoker ETOH Use: alcoholic Illicit Drug Use: denies illicit drug use Exam & Diagnostic Data Vital Signs and I&O Vital Signs Date Time Temp Pulse Resp B/P B/P Pulse O2 O2 Flow FiO2 Mean Ox Delivery Rate 12/21 853 98.6 97 18 134/88 98 Room Air 12/21 716 98.7 89 18 129/90 93 Room Air 12/20 2199 98.7 102 21 136/83 04/09 2157 98.7 102 21 136/83 94 Room Air 12/20 2141 105 136/83 12/20 2141 105 136/83 12/20 1851 98.4 104 18 135/85 96 12/20 1827 103 12/20 1748 111 12/20 1723 120 147/88 12/20 1651 103 146/96 12/20 1649 98.8 103 16 146/96 95 Room Air 12/20 1514 113 130/96 12/20 1340 100.8 16 95 Room Air 12/20 1339 116 161/87 12/20 1220 128 140/85 12/20 1151 118 12/20 1136 100.0 139 20 135/83 98 Room Air Intake & Output 12/21 1600 12/21 0812/21 0000 12/20 1600 12/20 0812/20 0000 Intake Total 000 480 2193 Output Total 500 Balance 756 595 500 Intake, IV 573 656 0754 Intake, Oral 340 Output, Urine 500 Patient 200 lb 200 lb Weight Weight Reported by Patient Reported by Patient Measurement Method Physical Exam: Patient is a well-developed well-nourished male appearing in no acute distress lethargic HEENT ulcer noted on the roof of his mouth Neck is supple there is no JVD Lungs few scattered rhonchi Heart regular rhythm S1 and S2 are normal no gallops or rubs 1/6 systolic ejection murmur at the left sternal border Abdomen bowel sounds positive Extremities without edema Labs/Yash Results: Laboratory Tests 12/21 12/21 12/20 0607 0053 1840 Chemistry Sodium (137 - 145 mmol/L) 138 Potassium (3.5 - 5.1 mmol/L) 3.0 L Chloride (98 - 107 mmol/L) 98 Carbon Dioxide (22 - 30 mmol/L) 30 Anion Gap (5 - 16) 11 BUN (9 - 20 mg/dL) 10 Creatinine (0.7 - 1.2 mg/dL) 0.6 L Estimated GFR (>60 ml/min) > 60 BUN/Creatinine Ratio (7 - 25 %) 16.7 Hemoglobin A1c (4.2 - 5.8 %) Pending Troponin I (<0.11 ng/ml) 0.52 *H 0.21 *H 0.21 *H TSH (0.270 - 4.200 uIU/mL) Pending Coagulation APTT (25 - 37 SEC) > 120 *H 31 Hematology CBC w Diff NO MAN DIFF REQ WBC (4.8 - 10.8 /CUMM) 7.8 RBC (4.70 - 6.10 /CUMM) 4.60 L Hgb (14.0 - 18.0 G/DL) 15.2 Hct (42 - 52 %) 44.9 MCV (80.0 - 94.0 FL) 97.7 H MCH (27.0 - 31.0 PG) 33.0 H MCHC (33.0 - 37.0 G/DL) 33.8 RDW (11.5 - 14.5 %) 14.8 H Plt Count (130 - 400 /CUMM) 203 MPV (7.4 - 10.4 FL) 8.4 Gran % (42.2 - 75.2 %) 74.7 Lymphocytes % (20.5 - 51.1 %) 15.4 L Monocytes % (1.7 - 9.3 %) 8.0 Eosinophils % (0 - 5 %) 1.5 Basophils % (0.0 - 2.0 %) 0.4 Absolute Granulocytes (1.4 - 6.5 /CUMM) 5.8 Absolute Lymphocytes (1.2 - 3.4 /CUMM) 1.2 Absolute Monocytes (0.10 - 0.60 /CUMM) 0.6 Absolute Eosinophils (0.0 - 0.7 /CUMM) 0.1 Absolute Basophils (0.0 - 0.2 /CUMM) 0 12/20 12/20 12/20 1515 1427 1212 Chemistry Sodium (137 - 145 mmol/L) 133 L Potassium (3.5 - 5.1 mmol/L) 3.6 Chloride (98 - 107 mmol/L) 89 L Carbon Dioxide (22 - 30 mmol/L) 29 Anion Gap (5 - 16) 15 BUN (9 - 20 mg/dL) 17 Creatinine (0.7 - 1.2 mg/dL) 0.7 Estimated GFR (>60 ml/min) > 60 BUN/Creatinine Ratio (7 - 25 %) 24.3 Glucose (65 - 99 mg/dL) 177 H Calcium (8.4 - 10.2 mg/dL) 9.4 Total Bilirubin (0.2 - 1.3 mg/dL) 1.6 H 1.7 H Direct Bilirubin (< 0.4 mg/dL) 0.5 H AST (17 - 59 U/L) 53 ALT (21 - 72 U/L) 47 Alkaline Phosphatase (< 127 U/L) 99 Troponin I (<0.11 ng/ml) 0.13 *H 0.07 Total Protein (6.3 - 8.2 g/dL) 7.1 Albumin (3.5 - 5.0 g/dL) 4.2 Globulin (1.9 - 4.2 gm/dL) 2.9 Albumin/Globulin Ratio (1.1 - 2.2 %) 1.4 Coagulation PT (9.4 - 12.5 SEC) 11.3 INR (0.90 - 1.17) 1.04 APTT (25 - 37 SEC) 30 D-Dimer High Sensitivty (0 - 243 ng/ml) 295 H Hematology CBC w Diff NO MAN DIFF REQ WBC (4.8 - 10.8 /CUMM) 12.9 H RBC (4.70 - 6.10 /CUMM) 4.82 Hgb (14.0 - 18.0 G/DL) 15.9 Hct (42 - 52 %) 46.4 MCV (80.0 - 94.0 FL) 96.2 H MCH (27.0 - 31.0 PG) 32.9 H MCHC (33.0 - 37.0 G/DL) 34.2 RDW (11.5 - 14.5 %) 14.6 H Plt Count (130 - 400 /CUMM) 273 MPV (7.4 - 10.4 FL) 7.7 Gran % (42.2 - 75.2 %) 88.0 H Lymphocytes % (20.5 - 51.1 %) 4.5 L Monocytes % (1.7 - 9.3 %) 7.3 Eosinophils % (0 - 5 %) 0.1 Basophils % (0.0 - 2.0 %) 0.1 Absolute Granulocytes (1.4 - 6.5 /CUMM) 11.4 H Absolute Lymphocytes (1.2 - 3.4 /CUMM) 0.6 L Absolute Monocytes (0.10 - 0.60 /CUMM) 0.9 H Absolute Eosinophils (0.0 - 0.7 /CUMM) 0 Absolute Basophils (0.0 - 0.2 /CUMM) 0 Toxicology Urine Opiates Screen (>2000 NG/ML) < 100 Methadone Screen (>300 NG/ML) < 40 Barbiturate Screen (>200 NG/ML) < 60 Ur Phencyclidine Scrn (>25 NG/ML) < 6.00 Amphetamines Screen (>1000 NG/ML) < 100 U Benzodiazepines Scrn (>200 NG/ML) < 85 Urine Cocaine Screen (>300 NG/ML) < 50 Urine Cannabis Screen (>50 NG/ML) < 5.00 Serum Alcohol (<10 MG/DL) < 10.0 Diagnostic Data EKG Results All EKGs that are available were reviewed Sinus rhythm sinus tachycardia with possible anteroseptal infarct age undetermined. In reviewing prior tracings he is noted to have mild ST elevations in the anterior leads on this admission have now resolved CXR Results IMPRESSION: 1. There are no acute cardiopulmonary findings. Other Results CTA IMPRESSION: No evidence of pulmonary embolism. Fatty infiltration of the liver as before. Assessment/Plan Assessment/Plan #1. Chest pain with minimally elevated troponins consistent with type II myocardial infarction secondary to alcohol withdrawal. He does have mild ST changes in the anterior leads that are concerning for possible ischemia but may be secondary to lead placement #2. Hypertension by history #3. Depression by history #4. Alcohol abuse currently with DTs #5. Heme positive stool #6. Recent URI with oral ulcer probably viral versus secondary to alcohol abuse #7. Nicotine dependence Recommendations #1. Would trend troponins #2. Continue to monitor on telemetry #3. Echocardiogram is pending to assess LV function along with etiology to his murmur #4. Continue treatment for DTs #5. Stress importance of refraining from tobacco and alcohol #6. Consider GI consult given heme positive stools #7. Would not recommend urgent catheterization at present given the fact that he is going through DTs and has heme positive stool #8. Continue metoprolol but due to tachycardia would increase dose to 50 mg twice a day. #9. Continue aspirin and heparin monitoring H&H #10. Continue lorazepam and clonidine for alcohol withdrawal Thank you for allowing [facility] to participate in the care of your patient. Consult Acknowledgment - Thank you for your consult request.
[2017-12-21 12:03] VITALS: BP 135/88
[2017-12-21 16:12] LABS: PTT 43 SEC (25-37)
--- NOTE | 2017-12-21 17:38 | Cons- Gastroenterology ---
General Information and HPI Consulting Request Date of Consult: 12/21/17 Requested By: Tammie Jean-Baptiste MD Reason for Consult: Melena Source of Information: patient History of Present Illness: 52-year-old male with a history of alcohol abuse. He is being admitted for chest pain with biochemical evidence of myocardial infarction. Yesterday, after starting anticoagulation, he had a single loose black bowel movement. Today, after eating lunch, he had a loose brown bowel movement. This was not documented in the chart. There's been no nausea, vomiting, bright blood per rectum. There has been no diaphoresis, lightheadedness or syncope. He is continued on aspirin and IV heparin at this time. The patient has frequent heartburn, for which he takes antacids. He has no esophageal dysphagia, or recurrent abdominal pain. His bowel movements are usually regular and formed. He has had black stools intermittently over the course the past year. He believes he had an EGD at [facility] in June as part of hospitalization, perhaps in the setting of a GI bleed. He denies history of liver disease. He has not had a colonoscopy. Allergies/Medications Allergies: Coded Allergies: NO KNOWN ALLERGIES (04/12/15) Home Med List: Amlodipine Besylate 5 MG TABLET 1 TAB PO DAILY HEART (Reported) Current Medications: Current Medications Sig/[place] Start time Last Medication Dose Route Stop Time Status Admin Aspirin 81 MG DAILY 12/21 1000 AC 12/21 PO 0940 Atorvastatin Calcium 40 MG 1700 12/20 1845 AC 12/20 PO 2026 Clonidine 0 .STK-MED ONE 12/20 2133 DC PO Clonidine 0.1 MG TID 12/20 1600 AC 12/21 PO 0940 Gabapentin 0 .STK-MED ONE 12/21 1450 DC PO Gabapentin 0 .STK-MED ONE 12/21 0641 DC PO Gabapentin 0 .STK-MED ONE 12/20 2131 DC PO Gabapentin 300 MG Q8 12/20 1400 AC 12/21 PO 1336 Heparin Sodium 5,400 UNIT ONCE ONE 12/21 1730 DC (Porcine) IV 12/21 173 Heparin Sodium 0 .STK-MED ONE 12/21 0237 DC (Porcine) .ROUTE Heparin Sodium 5,500 UNIT ONCE ONE 12/21 0230 DC 12/21 (Porcine) IV 12/21 230 0237 Heparin Sodium 25,000 UNIT Q24H 12/20 1645 AC 12/20 (Porcine) IV 1722 Sodium Chloride 500 ML Lidocaine 15 ML BID 12/20 2200 AC 12/21 PO 0940 Lidocaine 0 .STK-MED ONE 12/20 2135 DC PO Lorazepam 0 .STK-MED ONE 12/21 1329 DC PO Lorazepam 0 .STK-MED ONE 12/21 0642 DC PO Lorazepam 0 .STK-MED ONE 12/20 2359 DC PO Lorazepam 2 MG Q6 12/20 1845 AC 12/21 PO 1336 Lorazepam 0 Q1P PRN 12/20 1845 AC IV Magnesium Oxide 400 MG ONE ONE 12/21 1645 DC PO 12/21 1646 Metoprolol Tartrate 50 MG BID 12/21 1000 AC 12/21 PO 0940 Metoprolol Tartrate 25 MG BID 12/20 2200 DC 12/20 PO 2141 Metoprolol Tartrate 0 .STK-MED ONE 12/20 2134 DC PO Morphine Sulfate 2 MG Q4P PRN 12/20 1830 AC IV Nitroglycerin 0.4 MG Q 5 MINUTES X 3 DO.. 12/20 1845 AC SL Potassium Chloride 10 MEQ Q1H 12/21 1415 DC 12/21 IV 12/21 1516 1721 Potassium Chloride 0 .STK-MED ONE 12/21 0941 DC PO Potassium Chloride 80 MEQ ONCE ONE 12/21 0915 DC 12/21 PO 12/21 0916 0940 Sodium Chloride 1,000 ML .[id number] 12/20 1830 DC 12/20 IV 12/21 0749 1858 Thiamine HCl 100 MG 2100 12/20 2100 AC 12/20 Sodium Chloride 50 ML IV 12/22 2159 2141 Past History Travel History Traveled to [place] past 21 day No Medical History Blood Transfusion Hx: No Neurological: NONE EENT: NONE Cardiovascular: hypertension Respiratory: NONE Gastrointestinal: NONE Hepatic: NONE Renal: NONE Musculoskeletal: TENDINITIS Psychiatric: alcohol dependence, depression Endocrine: NONE Blood Disorders: NONE Cancer(s): NONE WATER TESTER/Reproductive: NONE Surgical History Surgical History: non-contributory Psychosocial History Where Do You Live? Home Smoking Status: Current Everyday Smoker ETOH Use: alcoholic Illicit Drug Use: denies illicit drug use Review of Systems Review of Systems Constitutional: Denies: diaphoresis, unexplained weight loss. EENTM: Denies: icterus, epistaxis. Cardiovascular: Reports: chest pain. Denies: syncope. Respiratory: Denies: cough, hemoptysis. GI: Reports: see HPI. Genitourinary: Denies: dysuria, hematuria. Musculoskeletal: Denies: muscle stiffness, neck pain. Skin: Denies: jaundice, lesions. Neurological/Psychological: Denies: cognitive dysfunction, tremors. Hematologic/Endocrine: Denies: bruising, bleeding. Exam & Diagnostic Data Vital Signs and I&O Vital Signs Date Time Temp Pulse Resp B/P B/P Pulse O2 O2 Flow FiO2 Mean Ox Delivery Rate 12/21 1609 98.7 97 18 127/81 97 Room Air 12/21 1203 98.2 84 18 135/88 12/21 0940 98.6 97 18 134/88 12/21 0940 98.6 97 18 134/88 12/21 0854 98.6 97 18 134/88 98 Room Air 12/21 0717 98.7 89 18 129/90 93 Room Air 12/20 2200 98.7 102 21 136/83 12/20 2157 98.7 102 21 136/83 94 Room Air 12/20 2141 105 136/83 12/20 2141 105 136/83 12/20 1851 98.4 104 18 135/85 96 12/20 1827 103 12/20 1748 111 Intake & Output 12/21 0400 12/20 1600 12/20 0400 12/19 1600 12/19 0400 Intake Total 712 334 2336 Output Total 500 Balance 756 595 500 Intake, IV 890 047 4030 Intake, Oral 340 Output, Urine 500 Patient 200 lb 200 lb Weight Weight Reported by Patient Reported by Patient Measurement Method Physical Exam: Well-developed well-nourished, in no apparent distress. Alert and oriented with apparent normal cognition. Skin without rash, lesion, jaundice. Positive spider telangiectasias on chest. No palmar erythema. No adenopathy. Sclera anicteric. No oropharyngeal lesion. Heart regular rhythm. Lungs clear. Abdomen soft, nondistended with normal bowel sounds; no tenderness, mass or organomegaly. Extremities without clubbing, cyanosis or edema. Distal pulses intact. Results Pertinent Lab Results: Laboratory Tests 12/21 12/21 12/21 1557 1150 0607 Chemistry Sodium (137 - 145 mmol/L) 138 Potassium (3.5 - 5.1 mmol/L) 3.0 L Chloride (98 - 107 mmol/L) 98 Carbon Dioxide (22 - 30 mmol/L) 30 Anion Gap (5 - 16) 11 BUN (9 - 20 mg/dL) 10 Creatinine (0.7 - 1.2 mg/dL) 0.6 L Estimated GFR (>60 ml/min) > 60 BUN/Creatinine Ratio (7 - 25 %) 16.7 Hemoglobin A1c (4.2 - 5.8 %) 5.1 Magnesium (1.6 - 2.3 mg/dL) 1.7 Troponin I (<0.11 ng/ml) 0.63 *H 0.52 *H TSH (0.270 - 4.200 uIU/mL) 3.820 Coagulation APTT (25 - 37 SEC) 43 H > 120 *H Hematology CBC w Diff NO MAN DIFF REQ WBC (4.8 - 10.8 /CUMM) 7.8 RBC (4.70 - 6.10 /CUMM) 4.60 L Hgb (14.0 - 18.0 G/DL) 15.2 Hct (42 - 52 %) 44.9 MCV (80.0 - 94.0 FL) 97.7 H MCH (27.0 - 31.0 PG) 33.0 H MCHC (33.0 - 37.0 G/DL) 33.8 RDW (11.5 - 14.5 %) 14.8 H Plt Count (130 - 400 /CUMM) 203 MPV (7.4 - 10.4 FL) 8.4 Gran % (42.2 - 75.2 %) 74.7 Lymphocytes % (20.5 - 51.1 %) 15.4 L Monocytes % (1.7 - 9.3 %) 8.0 Eosinophils % (0 - 5 %) 1.5 Basophils % (0.0 - 2.0 %) 0.4 Absolute Granulocytes (1.4 - 6.5 /CUMM) 5.8 Absolute Lymphocytes (1.2 - 3.4 /CUMM) 1.2 Absolute Monocytes (0.10 - 0.60 /CUMM) 0.6 Absolute Eosinophils (0.0 - 0.7 /CUMM) 0.1 Absolute Basophils (0.0 - 0.2 /CUMM) 0 12/21 12/21 12/20 12/20 12/20 0053 0040 1840 1515 1427 Chemistry Total Bilirubin (0.2 - 1.3 mg/dL) 1.6 H Direct Bilirubin (< 0.4 mg/dL) 0.5 H Troponin I (<0.11 ng/ml) 0.21 *H 0.21 *H 0.13 *H Coagulation APTT (25 - 37 SEC) 31 Serology HSV I IgG Ab Pending HSV II IgG Pending Toxicology Urine Opiates Screen (>2000 NG/ML) < 100 Methadone Screen (>300 NG/ML) < 40 Barbiturate Screen (>200 NG/ML) < 60 Ur Phencyclidine Scrn (>25 NG/ML) < 6.00 Amphetamines Screen (>1000 NG/ML) < 100 U Benzodiazepines Scrn (>200 NG/ML) < 85 Urine Cocaine Screen (>300 NG/ML) < 50 Urine Cannabis Screen (>50 NG/ML) < 5.00 12/20 1212 Chemistry Sodium (137 - 145 mmol/L) 133 L Potassium (3.5 - 5.1 mmol/L) 3.6 Chloride (98 - 107 mmol/L) 89 L Carbon Dioxide (22 - 30 mmol/L) 29 Anion Gap (5 - 16) 15 BUN (9 - 20 mg/dL) 17 Creatinine (0.7 - 1.2 mg/dL) 0.7 Estimated GFR (>60 ml/min) > 60 BUN/Creatinine Ratio (7 - 25 %) 24.3 Glucose (65 - 99 mg/dL) 177 H Calcium (8.4 - 10.2 mg/dL) 9.4 Total Bilirubin (0.2 - 1.3 mg/dL) 1.7 H AST (17 - 59 U/L) 53 ALT (21 - 72 U/L) 47 Alkaline Phosphatase (< 127 U/L) 99 Troponin I (<0.11 ng/ml) 0.07 Total Protein (6.3 - 8.2 g/dL) 7.1 Albumin (3.5 - 5.0 g/dL) 4.2 Globulin (1.9 - 4.2 gm/dL) 2.9 Albumin/Globulin Ratio (1.1 - 2.2 %) 1.4 Coagulation PT (9.4 - 12.5 SEC) 11.3 INR (0.90 - 1.17) 1.04 APTT (25 - 37 SEC) 30 D-Dimer High Sensitivty (0 - 243 ng/ml) 295 H Hematology CBC w Diff NO MAN DIFF REQ WBC (4.8 - 10.8 /CUMM) 12.9 H RBC (4.70 - 6.10 /CUMM) 4.82 Hgb (14.0 - 18.0 G/DL) 15.9 Hct (42 - 52 %) 46.4 MCV (80.0 - 94.0 FL) 96.2 H MCH (27.0 - 31.0 PG) 32.9 H MCHC (33.0 - 37.0 G/DL) 34.2 RDW (11.5 - 14.5 %) 14.6 H Plt Count (130 - 400 /CUMM) 273 MPV (7.4 - 10.4 FL) 7.7 Gran % (42.2 - 75.2 %) 88.0 H Lymphocytes % (20.5 - 51.1 %) 4.5 L Monocytes % (1.7 - 9.3 %) 7.3 Eosinophils % (0 - 5 %) 0.1 Basophils % (0.0 - 2.0 %) 0.1 Absolute Granulocytes (1.4 - 6.5 /CUMM) 11.4 H Absolute Lymphocytes (1.2 - 3.4 /CUMM) 0.6 L Absolute Monocytes (0.10 - 0.60 /CUMM) 0.9 H Absolute Eosinophils (0.0 - 0.7 /CUMM) 0 Absolute Basophils (0.0 - 0.2 /CUMM) 0 Toxicology Serum Alcohol (<10 MG/DL) < 10.0 Assessment/Plan Assessment/Recommendations: Melena. The patient had one episode in the setting of anticoagulation yesterday. There has been no hypotension. Hemoglobin has remained stable. There is no history of liver disease; he has normal albumin and INR, with an isolated elevated bilirubin and otherwise normal LFTs. He has been maintained on heparin and aspirin. The patient had an endoscopy at [facility] in June; he does not know the results, and details are unavailable. Recommendations * IV PPI twice a day * For now, may continue solid heart healthy diet * CBC daily * Defer endoscopy * Alcohol withdrawal protocol * Please call GI with recurrent melena, hematochezia, hematemesis, or any other suspected evidence of GI bleeding * Please obtain records from June hospitalization at [facility], especially any GI consultation and endoscopy report Consult Acknowledgment - Thank you for your consult request.
[2017-12-21 18:03] VITALS: BP 124/66
[2017-12-22] VITALS: BP 127/81
[2017-12-22 01:36] LABS: PTT 73 SEC (25-37)
[2017-12-22 06:59] VITALS: BP 140/98
--- NOTE | 2017-12-22 07:15 | PN- Housestaff ---
Rian GARCIA,Valentin 12/22/17 0714: Subjective Follow-up For: Type 2 HI Alcohol use disorder/alcohol withdrawal Tele-Events Since Last Visit: Sinus rhythm HR 70s-100s Subjective: Patient was seen and examined at bedside. He is resting comfortably. He had no acute events overnight. He expresses frustration with the length of stay, his only current complaint is pain from his service. Although he is tremulous on examination patient states that he is tremulous at baseline. He reportedly had a brief episode of chest pain during the morning, he did not report this pain until later in the day after the results. He had no associated palpitations, nausea, dyspnea, diaphoresis. Review of Systems Constitutional: Denies: chills, fever. EENTM: Reports: mouth pain. Cardiovascular: Reports: chest pain (brief episode this AM). Denies: palpitations. Respiratory: Denies: cough, short of breath. Gastrointestinal: Reports: no symptoms. Genitourinary: Reports: no symptoms. Musculoskeletal: Reports: no symptoms. Objective Last 24 Hrs of Vital Signs/I&O Vital Signs Date Time Temp Pulse Resp B/P B/P Pulse O2 O2 Flow FiO2 Mean Ox Delivery Rate 12/22 0659 97.5 80 18 140/98 95 Room Air 12/22 0045 80 127/81 12/22 0000 98.7 80 18 127/81 12/21 2155 97 127/81 12/21 1805 98.7 97 18 127/81 12/21 1803 98.8 92 18 124/66 12/21 1803 98.8 92 18 124/66 97 Room Air Room Air 12/21 1609 98.7 97 18 127/81 97 Room Air 12/21 1203 98.2 84 18 135/88 12/21 0940 98.6 97 18 134/88 12/21 0940 98.6 97 18 134/88 12/21 0854 98.6 97 18 134/88 98 Room Air 12/21 0717 98.7 89 18 129/90 93 Room Air Intake & Output 12/22 0800 12/22 0000 12/21 1600 Intake Total 220 200 240 Output Total 400 Balance -180 200 240 Intake, IV 120 Intake, Oral 100 200 240 Number 1 Bowel Movements Output, Urine 400 Physical Exam General Appearance: Alert, Oriented X3, Cooperative, No Acute Distress Skin: erythema of the face and chest, pt has history of rosacea Skin Temp/Moisture Exam: Warm/Dry HEENT: bilateral ulcerations of the hard palate Cardiovascular: Regular Rate, Normal S1, Normal S2 Lungs: Clear to Auscultation, Normal Air Movement Abdomen: Normal Bowel Sounds, Soft, No Tenderness Neurological: mildly tremulus Extremities: No Clubbing, No Cyanosis, No Edema Current Medications: Current Medications Sig/[place] Start time Last Medication Dose Route Stop Time Status Admin Aspirin 81 MG DAILY 12/21 1000 AC 12/21 PO 0940 Atorvastatin Calcium 40 MG 1700 12/20 1845 AC 12/21 PO 1805 Clonidine 0 .STK-MED ONE 12/21 1805 DC PO Clonidine 0.1 MG TID 12/20 1600 AC 12/22 PO 0045 Gabapentin 0 .STK-MED ONE 12/21 1450 DC PO Gabapentin 300 MG Q8 12/20 1400 AC 12/22 PO 0608 Heparin Sodium 0 .STK-MED ONE 12/21 1805 DC (Porcine) .ROUTE Heparin Sodium 5,400 UNIT ONCE ONE 12/21 1730 DC 12/21 (Porcine) IV 12/21 1731 1805 Heparin Sodium 25,000 UNIT Q24H 12/20 1645 AC 12/21 (Porcine) IV 1846 Sodium Chloride 500 ML Lidocaine 15 ML BID 12/20 2200 AC 12/21 PO 0940 Lorazepam 0 .STK-MED ONE 12/21 1805 DC PO Lorazepam 1.5 MG Q6 12/21 1800 AC 12/22 PO 0606 Lorazepam 0 .STK-MED ONE 12/21 1329 DC PO Lorazepam 2 MG Q6 12/20 1845 DC 12/21 PO 1336 Lorazepam 0 Q1P PRN 12/20 1845 AC 12/21 IV 2020 Magnesium Oxide 400 MG ONE ONE 12/21 1645 DC 12/21 PO 12/21 1646 1805 Metoprolol Tartrate 50 MG BID 12/21 1000 AC 12/21 PO 2155 Metoprolol Tartrate 25 MG BID 12/20 2200 DC 12/20 PO 2141 Morphine Sulfate 2 MG Q4P PRN 12/20 1830 AC 12/21 IV 2248 Nitroglycerin 0.4 MG Q 5 MINUTES X 3 DO.. 12/20 1845 AC SL Pantoprazole Sodium 40 MG BID 12/21 2200 AC 12/21 IV 2151 Potassium Chloride 10 MEQ Q1H 12/21 1415 DC 12/21 IV 12/21 1516 1721 Potassium Chloride 0 .STK-MED ONE 12/21 0941 DC PO Potassium Chloride 80 MEQ ONCE ONE 12/21 0915 DC 12/21 PO 12/21 0916 0940 Sodium Chloride 1,000 ML .[id number] 12/20 1830 DC 12/20 IV 12/21 0749 1858 Thiamine HCl 100 MG 2100 12/20 2100 AC 12/21 Sodium Chloride 50 ML IV 12/22 2159 2151 Last 24 Hrs of Lab/Yash Results Last 24 Hrs of Labs/Mics: Laboratory Tests 12/22/17 0638: Sodium Pending, Potassium Pending, Chloride Pending, Carbon Dioxide Pending, Anion Gap Pending, BUN Pending, Creatinine Pending, BUN/Creatinine Ratio Pending , CBC w Diff Pending, WBC Pending, RBC Pending, Hgb Pending, Hct Pending, MCV Pending, MCH Pending, MCHC Pending, RDW Pending, Plt Count Pending, MPV Pending 12/22/17 0100: Troponin I 0.33 *H, APTT 73 H 12/21/17 1755: Troponin I 0.70 *H 12/21/17 1557: APTT 43 H 12/21/17 1150: Magnesium 1.7, Troponin I 0.63 *H Orders CIWA Score (last 24 hrs): 0-7 ECHO Findings: Left Ventricle Normal global left ventricular size, wall thickness, systolic function with no obvious regional wall motion abnormalities. Normal left ventricular ejection fraction estimated at 60-65%. Right Ventricle Normal right ventricular size and function. Right Atrium Normal right atrial size. Left Atrium Normal left atrial size. Mitral Valve Mitral valve normal in structure and function. Trace mitral regurgitation. Aortic Valve Aortic valve is normal in structure and function. Tricuspid Valve Tricuspid valve is normal in structure and function. Trace to mild tricuspid regurgitation. Right ventricular systolic pressure estimated to be at upper limits of normal at 30 mmHg. Pulmonic Valve Pulmonic valve not well visualized, grossly normal. Pericardium No pericardial effusion. Great Vessels Normal size aortic root. CONCLUSIONS Normal left ventricular systolic function. No significant valvular abnormalities noted. Assessment/Plan Assessment: Patient is a 52-year-old male with a PMH significant for alcohol use disorder, HTN, depression and presented [facility] ED with chest pain, described as a tightness and severe in nature. #Type 2 HI Troponins peaked. - DC'd IV heparin - Continue aspirin, statin, nitroglycerin, metoprolol -Patient will require close cardiology follow-up as an outpatient for stress test -Alcohol and smoking cessation counseling given - Cardiology recommendations appreciated #Alcohol use disorder, with alcohol withdrawal -Continue CIWA protocol, continue scheduled Ativan #Hypokalemia -Repleted orally -Continue to Follow BEP #guaiac + stool -GI recommendations appreciated -Records requested from recent hospitalization at [facility] #HTN -Continue current regimen and monitor BEP closely #Hyperglycemia -Hgb A1c is 5.1 #Oral ulcer -Continue pain management with lidocaine oral rinse -HSV negative -Requested from on-call flatcar whacker, discussed case with Dr. Garcia. He recommends outpatient follow-up, given onset approximately 2 weeks ago too early for biopsy and no urgent need for inpatient workup. On his differential, although low down, is Tad's granulomatosis, more likely is traumatic injury Diet: Heart healthy diet DVT prophylaxis: SC heparin, ALPS CODE STATUS: Full code Problem List: 1. Hard palate ulcer 2. Acute coronary syndrome 3. Alcohol withdrawal Pain Ratin Pain Location: none Pain Goal: Remain pain free Pain Plan: pain pathway Tomorrow's Labs & Rationales: cbc, bep, mag Estiven GARCIA,Debra 12/22/17 1015: Attending MD Review Statement Attending Statement Attending MD Statement: examined this patient, discuss w/resident/PA/POSTAL INSPECTOR, agreed w/resident/PA/POSTAL INSPECTOR, reviewed EMR data (avail) Attending Assessment/Plan: 52M PMH HTN, alcohol use disorder presenting with chest pain at rest since this morning. Mid-sternal, non-radiating, 7/10, associted with diaphoresis but not SOB or palpitations, not worse wiwth exertion. No family or personal history of CAD, active smoker. Showing signs of agitation and alcohol withdrawal. EKG shows non-specific changes with widening of QRS in anterior leads and questionable ST elevations. Also complains of painful sores on hard palate. Pain resolved, feels well. Troponin peaked at 0.70. No EKG changes. HSV 1 and 2 are negative. Requiring PRN IV Ativan 1. NSTEMI 2. Alcohol withdrawal, uncomplicated 3. Aphthous ulcers of the hard palate Plan - Continue on telemetry - Replete potassium with goal >4.0, magnesium goal > 2.0 - ASA, statin, b-aide - Heparin drip - Echocardiogram - Cardiology consult - Ativan PRN CIWA and standing, do not taper today - SL Nitro - Can reach out to ENT regarding oral ulcers, formal consult not required at this time - Lidocaine rinse for mouth pain - Continue home meds - DVT PPx
[2017-12-22 08:00] VITALS: BP 140/98
[2017-12-22 08:36] LABS: ABSOLUTE BASOPHIL COUNT 0 /CUMM (0.0-0.2); ABSOLUTE EOSINOPHIL COUNT 0.2 /CUMM (0.0-0.7); ABSOLUTE GRANULOCYTE CT 6.4 /CUMM (1.4-6.5); ABSOLUTE LYMPH COUNT 1.2 /CUMM (1.2-3.4); ABSOLUTE MONOCYTE COUNT 0.5 /CUMM (0.10-0.60); BASOPHIL % 0.4 % (0.0-2.0); EOSINOPHIL % 2.1 % (0-5); GRANULOCYTE % 76.7 % (42.2-75.2); HEMATOCRIT 45.3 % (42-52); MEAN CORPUSCULAR HGB 32.8 PG (27.0-31.0); MEAN CORPUSCULAR HGB CONC 33.3 G/DL (33.0-37.0); MEAN CORPUSCULAR VOLUME 98.4 FL (80.0-94.0); MEAN PLATELET VOLUME 8.7 FL (7.4-10.4); PLATELET COUNT 207 /CUMM (130-400); RBC DISTRIBUTION WIDTH 15.1 % (11.5-14.5); WHITE BLOOD CELL COUNT 8.3 /CUMM (4.8-10.8)
--- NOTE | 2017-12-22 08:58 | ECHOCARDIOGRAM REPORT ---
CHIDI BA Age: 52 : 1965 Gender: M Exam Date: 12/21/2017 10:04 Exam Location: ER Ht (in): 70 Wt (lb): 200 BSA: 2.14 BP: 129 / 90 Ordering Physician: Sedrick Espinosa MD Referring Physician: Sedrick Espinosa MD Technologist: Mars Guerrero [facility] Room Number: 18 Indications: Chest Pain Rhythm: Sinus Technical Quality: fair FINDINGS Left Ventricle Normal global left ventricular size, wall thickness, systolic function with no obvious regional wall motion abnormalities. Normal left ventricular ejection fraction estimated at 60-65%. Right Ventricle Normal right ventricular size and function. Right Atrium Normal right atrial size. Left Atrium Normal left atrial size. Mitral Valve Mitral valve normal in structure and function. Trace mitral regurgitation. Aortic Valve Aortic valve is normal in structure and function. Tricuspid Valve Tricuspid valve is normal in structure and function. Trace to mild tricuspid regurgitation. Right ventricular systolic pressure estimated to be at upper limits of normal at 30 mmHg. Pulmonic Valve Pulmonic valve not well visualized, grossly normal. Pericardium No pericardial effusion. Great Vessels Normal size aortic root. CONCLUSIONS Normal left ventricular systolic function. No significant valvular abnormalities noted. Rg Coon M.D. (Electronically Signed) Final Date: 22 December 2017 08:57 MEASUREMENTS (Male / Female) Normal Values 2D ECHO LV Diastolic Diameter PLAX 5.2 cm 4.2 - 5.9 / 3.9 - 5.3 cm LV Systolic Diameter PLAX 3.7 cm 2.1 - 4.0 cm LV Fractional Shortening PLAX 28.8 % 25 - 46 % LV Ejection Fraction 2D Teich 55.1 % IVS Diastolic Thickness 1.3 cm LVPW Diastolic Thickness 1.1 cm LV Relative Wall Thickness 0.5 RV Internal Dim ED PLAX 3.7 cm 1.9 - 3.8 cm LVOT Diameter 2.1 cm Aortic Root Diameter 3.2 cm LA Systolic Diameter LX 3.6 cm 3.0 - 4.0 / 2.7 - 3.8 cm LA Volume 40.0 cm 18 - 58 / 22 - 52 cm Ascending Aorta Diameter 2.8 cm DOPPLER AV Peak Velocity 117.0 cm/s AV Peak Gradient 5.5 mmHg AV Mean Velocity 74.3 cm/s AV Mean Gradient 3.0 mmHg AV Velocity Time Integral 21.7 cm LVOT Peak Velocity 91.0 cm/s LVOT Peak Gradient 3.3 mmHg LVOT Mean Velocity 57.5 cm/s LVOT Mean Gradient 2.0 mmHg LVOT Velocity Time Integral 18.0 cm LVOT Stroke Volume 62.3 cm AV Area Cont Eq vti 2.9 cm AV Area Cont Eq pk 2.7 cm MV Peak Velocity 80.0 cm/s MV Peak Gradient 2.6 mmHg MV Mean Velocity 48.8 cm/s MV Mean Gradient 1.0 mmHg Mitral E Point Velocity 36.5 cm/s Mitral A Point Velocity 52.8 cm/s Mitral E to A Ratio 0.7 MV PHT Velocity 69.2 cm/s MV Deceleration Carlton 257.0 cm/s MV Pressure Half Time 80.8 ms MV Area PHT 2.7 cm MV Deceleration Time 229.0 ms TR Peak Velocity 225.0 cm/s TR Peak Gradient 20.3 mmHg Right Atrial Pressure 10.0 mmHg Pulmonary Artery Systolic Pressu 30.3 mmHg Right Ventricular Systolic Press 30.3 mmHg PV Peak Velocity 63.4 cm/s PV Peak Gradient 1.6 mmHg PV Mean Velocity 43.6 cm/s PV Mean Gradient 1.0 mmHg PV Velocity Time Integral 12.5 cm LV E' Lateral Velocity 8.4 cm/s Mitral E to LV E' Lateral Ratio 4.4 LV E' Septal Velocity 8.7 cm/s Mitral E to LV E' Septal Ratio 4.2
--- NOTE | 2017-12-22 12:38 | PN- Cardiology ---
Subjective Subjective: Lethargic but responsive. Denies recurrent chest pain. Objective Vital Signs and I&Os Vital Signs Date Time Temp Pulse Resp B/P B/P Pulse O2 O2 Flow FiO2 Mean Ox Delivery Rate 12/22 0839 97.5 80 18 140/98 12/22 0839 97.5 80 18 140/98 12/22 0800 97.5 89 18 140/98 12/22 0659 97.5 80 18 140/98 95 Room Air 12/22 0045 80 127/81 12/22 0000 98.7 80 18 127/81 12/21 2155 97 127/81 12/21 1805 98.7 97 18 127/81 12/21 1803 98.8 92 18 124/66 12/21 1803 98.8 92 18 12466 97 Room Air Room Air 12/21 1609 98.7 97 18 127/81 97 Room Air Intake & Output 12/22 1600 12/22 0800 12/22 0000 12/21 1600 12/21 0800 12/21 0000 Intake Total 220 200 240 756 595 Output Total 400 Balance -180 200 240 756 595 Intake, IV 120 756 255 Intake, Oral 100 200 240 340 Number 1 Bowel Movements Output, Urine 400 Patient 200 lb Weight Weight Reported by Patient Measurement Method Physical Exam: General: no apparent distress. Alert. Eyes: No obvious scleral icterus. HEENT: Oral ulcers Cardiovascular: Normal intensity S1/S2. PMI not grossly displaced. Respiratory: Lungs clear to auscultation bilaterally. Abdomen: Soft, nontender with no guarding or rebound tenderness. Musculoskeletal: No clubbing or cyanosis noted Skin: Warm Neurologic: No gross focal deficits noted. Current Medications: Current Medications Sig/[place] Start time Last Medication Dose Route Stop Time Status Admin Aspirin 81 MG DAILY 12/21 1000 AC 12/22 PO 0839 Atorvastatin Calcium 40 MG 1700 12/20 1845 AC 12/21 PO 1805 Clonidine 0 .STK-MED ONE 12/21 1805 DC PO Clonidine 0.1 MG TID 12/20 1600 AC 12/22 PO 0839 Gabapentin 0 .STK-MED ONE 12/21 1450 DC PO Gabapentin 300 MG Q8 12/20 1400 AC 12/22 PO 0608 Heparin Sodium 0 .STK-MED ONE 12/21 1805 DC (Porcine) .ROUTE Heparin Sodium 5,400 UNIT ONCE ONE 12/21 1730 DC 12/21 (Porcine) IV 04/10 1731 1805 Heparin Sodium 25,000 UNIT Q24H 12/20 1645 AC 12/21 (Porcine) IV 1846 Sodium Chloride 500 ML Lidocaine 15 ML BID 12/20 2200 AC 12/22 PO 0840 Lorazepam 0 .STK-MED ONE 12/21 1805 DC PO Lorazepam 1.5 MG Q6 12/21 1800 AC 12/22 PO 1153 Lorazepam 0 .STK-MED ONE 12/21 1329 DC PO Lorazepam 2 MG Q6 12/20 1845 DC 12/21 PO 1336 Lorazepam 0 Q1P PRN 12/20 1845 AC 12/21 IV 2020 Magnesium Oxide 400 MG ONE ONE 12/21 1645 DC 12/21 PO 12/21 1646 1805 Metoprolol Tartrate 50 MG BID 12/21 1000 AC 12/22 PO 0839 Morphine Sulfate 2 MG Q4P PRN 12/20 1830 AC 12/21 IV 2248 Nitroglycerin 0.4 MG Q 5 MINUTES X 3 DO.. 12/20 184 AC SL Pantoprazole Sodium 40 MG BID 12/21 2200 AC 12/22 IV 0834 Potassium Chloride 40 MEQ ONCE ONE 12/22 0930 DC 12/22 PO 12/22 0931 1153 Potassium Chloride 10 MEQ Q1H 12/21 1415 DC 12/21 IV 12/21 1516 1721 Thiamine HCl 100 MG 2100 12/20 2100 AC 12/21 Sodium Chloride 50 ML IV 12/22 2159 2151 Results Last 48 Hrs of Labs/Mics: Laboratory Tests 12/22/17 0638: Anion Gap 12, Estimated GFR > 60, BUN/Creatinine Ratio 15.7, CBC w Diff NO MAN DIFF REQ, RBC 4.60 L, MCV 98.4 H, MCH 32.8 H, MCHC 33.3, RDW 15.1 H, MPV 8.7 , Gran % 76.7 H, Lymphocytes % 14.7 L, Monocytes % 6.1, Eosinophils % 2.1, Basophils % 0.4, Absolute Granulocytes 6.4, Absolute Lymphocytes 1.2, Absolute Monocytes 0.5, Absolute Eosinophils 0.2, Absolute Basophils 0 12/22/17 0100: Troponin I 0.33 *H, APTT 73 H 12/21/17 1755: Troponin I 0.70 *H 12/21/17 1557: APTT 43 H 12/21/17 1150: Magnesium 1.7, Troponin I 0.63 *H 12/21/17 0607: Anion Gap 11, Estimated GFR > 60, BUN/Creatinine Ratio 16.7, Hemoglobin A1c 5.1, Troponin I 0.52 *H, TSH 3.820, APTT > 120 *H, CBC w Diff NO MAN DIFF REQ, RBC 4.60 L, MCV 97.7 H, MCH 33.0 H, MCHC 33.8, RDW 14.8 H, MPV 8.4, Gran % 74.7, Lymphocytes % 15.4 L, Monocytes % 8.0, Eosinophils % 1.5, Basophils % 0.4, Absolute Granulocytes 5.8, Absolute Lymphocytes 1.2, Absolute Monocytes 0.6, Absolute Eosinophils 0.1, Absolute Basophils 0 12/21/17 0053: Troponin I 0.21 *H, APTT 31 12/21/17 0040: HSV I IgG Ab <0.90, HSV II IgG <0.90 12/20/17 1840: Troponin I 0.21 *H 12/20/17 1515: Total Bilirubin 1.6 H, Direct Bilirubin 0.5 H, Troponin I 0.13 *H 12/20/17 1427: Urine Opiates Screen < 100, Methadone Screen < 40, Barbiturate Screen < 60, Ur Phencyclidine Scrn < 6.00, Amphetamines Screen < 100, U Benzodiazepines Scrn < 85, Urine Cocaine Screen < 50, Urine Cannabis Screen < 5.00 Recent Imaging Studies: Telemetry tracings were personally reviewed and shows sinus rhythm next Echocardiogram Normal left ventricular systolic function. No significant valvular abnormalities noted. Assessment/Plan Assessment/Plan #1. Chest pain with minimally elevated troponins consistent with type II myocardial infarction secondary to alcohol withdrawal. No wall motion abnormalities by echocardiogram #2. Hypertension by history #3. Depression by history #4. Alcohol abuse currently with DTs #5. Heme positive stool #6. Recent URI with oral ulcer probably viral versus secondary to alcohol abuse #7. Nicotine dependence No recurrent chest discomfort. Echocardiogram with no wall motion abnormalities. Troponins are trending down. Continue medical therapy with aspirin, beta-aide , and statin. Can discontinue IV heparin drip. Continue EtOH detox protocol. Will likely be a candidate for outpatient nuclear stress test in the future. Hemoglobin is stable. Brady Kenyon MD FACC Continue telemetry? No
[2017-12-22 14:21] VITALS: BP 106/80
[2017-12-22 15:09] LABS: PTT 31 SEC (25-37)
--- NOTE | 2017-12-22 16:10 | PN- Gastroenterology ---
Assessment/Plan GI Assessment/Recommendations: The patient presents with 1 episode of melena, which has cleared. His hemoglobin has remained absolutely stable. Review of records from [facility] reveals that he was hospitalized in late May with hematemesis and melena. Endoscopy revealed ulcerative esophagitis, and no varices. He also had laboratory evidence of alcoholic liver disease in both June and October. Recommendations * PPI by mouth twice a day * Continue heart healthy diet * Defer endoscopy; this can be performed as outpatient * Alcohol withdrawal protocol * Please call GI with recurrent melena, hematochezia, hematemesis, or any other suspected evidence of GI bleeding Thank you very much for allowing my participation in this patient's care. I will no longer follow him in the hospital, but please call or reconsult as needed. After discharge, I will be happy to see him in my office in follow-up ( or, he may follow up with [place] based gastroenterologists who saw him initially). Subjective Subjective: The patient denies heartburn, nausea, vomiting, dysphagia, abdominal pain. He has had no further bowel movements, including melena or bright red blood per rectum. Objective Vital Signs and I&Os Vital Signs Date Time Temp Pulse Resp B/P B/P Pulse O2 O2 Flow FiO2 Mean Ox Delivery Rate 12/22 1421 97.9 82 20 106/80 94 Room Air 12/22 0839 97.5 80 18 140/98 12/22 0839 97.5 80 18 140/98 12/22 0800 97.5 89 18 140/98 12/22 0659 97.5 80 18 140/98 95 Room Air 12/22 0045 80 127/81 12/22 0000 98.7 80 18 127/81 12/21 2155 97 127/81 12/21 1805 98.7 97 18 127/81 12/21 1803 98.8 92 18 124/66 12/21 1803 98.8 92 18 12466 97 Room Air Room Air 12/21 1609 98.7 97 18 12781 97 Room Air Intake & Output 12/22 1600 12/22 0400 12/21 1600 12/21 0400 12/20 1600 12/20 0400 Intake Total 805 200 262 945 3619 Output Total 400 500 Balance 405 200 996 595 500 Intake, IV 225 963 144 1568 Intake, Oral 580 200 240 340 Number 1 Bowel Movements Output, Urine 400 500 Patient 200 lb 200 lb Weight Weight Reported by Patient Reported by Patient Measurement Method Physical Exam: Sclera anicteric. Abdomen mildly distended, soft, nontender. Current Medications: Current Medications Sig/[place] Start time Last Medication Dose Route Stop Time Status Admin Aspirin 81 MG DAILY 12/21 1000 AC 12/22 PO 0839 Atorvastatin Calcium 40 MG 1700 12/20 1845 AC 12/21 PO 1805 Clonidine 0 .STK-MED ONE 12/21 1805 DC PO Clonidine 0.1 MG TID 12/20 1600 AC 12/22 PO 0839 Gabapentin 300 MG Q8 12/20 1400 AC 12/22 PO 1426 Heparin Sodium 0 .STK-MED ONE 12/21 1805 DC (Porcine) .ROUTE Heparin Sodium 5,400 UNIT ONCE ONE 12/21 1730 DC 12/21 (Porcine) IV 12/21 1731 1805 Heparin Sodium 25,000 UNIT Q24H 12/20 1645 DC 12/21 (Porcine) IV 1846 Sodium Chloride 500 ML Lidocaine 15 ML BID 12/20 2200 AC 12/22 PO 0840 Lorazepam 0 .STK-MED ONE 12/21 1805 DC PO Lorazepam 1.5 MG Q6 12/21 1800 AC 12/22 PO 1153 Lorazepam 2 MG Q6 12/20 1845 DC 12/21 PO 1336 Lorazepam 0 Q1P PRN 12/20 1845 AC 12/21 IV 2020 Magnesium Oxide 400 MG ONE ONE 12/21 1645 DC 12/21 PO 12/21 1646 1805 Metoprolol Tartrate 50 MG BID 12/21 1000 AC 12/22 PO 0839 Morphine Sulfate 2 MG Q4P PRN 12/20 1830 AC 12/21 IV 2248 Nitroglycerin 0.4 MG Q 5 MINUTES X 3 DO.. 12/20 1845 AC SL Pantoprazole Sodium 40 MG BID 12/21 2200 AC 12/22 IV 0834 Potassium Chloride 40 MEQ ONCE ONE 12/22 0930 DC 12/22 PO 12/22 0931 1153 Thiamine HCl 100 MG 2100 12/20 2100 AC 12/21 Sodium Chloride 50 ML IV 12/22 2159 2151 Results Pertinent Lab Results: Laboratory Tests 12/22 12/22 12/22 1430 0638 0100 Chemistry Sodium (137 - 145 mmol/L) 140 Potassium (3.5 - 5.1 mmol/L) 3.7 Chloride (98 - 107 mmol/L) 99 Carbon Dioxide (22 - 30 mmol/L) 28 Anion Gap (5 - 16) 12 BUN (9 - 20 mg/dL) 11 Creatinine (0.7 - 1.2 mg/dL) 0.7 Estimated GFR (>60 ml/min) > 60 BUN/Creatinine Ratio (7 - 25 %) 15.7 Troponin I (<0.11 ng/ml) 0.33 *H Coagulation APTT (25 - 37 SEC) 31 73 H Hematology CBC w Diff NO MAN DIFF REQ WBC (4.8 - 10.8 /CUMM) 8.3 RBC (4.70 - 6.10 /CUMM) 4.60 L Hgb (14.0 - 18.0 G/DL) 15.1 Hct (42 - 52 %) 45.3 MCV (80.0 - 94.0 FL) 98.4 H MCH (27.0 - 31.0 PG) 32.8 H MCHC (33.0 - 37.0 G/DL) 33.3 RDW (11.5 - 14.5 %) 15.1 H Plt Count (130 - 400 /CUMM) 207 MPV (7.4 - 10.4 FL) 8.7 Gran % (42.2 - 75.2 %) 76.7 H Lymphocytes % (20.5 - 51.1 %) 14.7 L Monocytes % (1.7 - 9.3 %) 6.1 Eosinophils % (0 - 5 %) 2.1 Basophils % (0.0 - 2.0 %) 0.4 Absolute Granulocytes (1.4 - 6.5 /CUMM) 6.4 Absolute Lymphocytes (1.2 - 3.4 /CUMM) 1.2 Absolute Monocytes (0.10 - 0.60 /CUMM) 0.5 Absolute Eosinophils (0.0 - 0.7 /CUMM) 0.2 Absolute Basophils (0.0 - 0.2 /CUMM) 0 12/21 12/21 12/21 1755 1557 1150 Chemistry Potassium (3.5 - 5.1 mmol/L) 3.7 Magnesium (1.6 - 2.3 mg/dL) 1.7 Troponin I (<0.11 ng/ml) 0.70 *H 0.63 *H Coagulation APTT (25 - 37 SEC) 43 H 12/21 12/21 12/21 0607 0053 0040 Chemistry Sodium (137 - 145 mmol/L) 138 Potassium (3.5 - 5.1 mmol/L) 3.0 L Chloride (98 - 107 mmol/L) 98 Carbon Dioxide (22 - 30 mmol/L) 30 Anion Gap (5 - 16) 11 BUN (9 - 20 mg/dL) 10 Creatinine (0.7 - 1.2 mg/dL) 0.6 L Estimated GFR (>60 ml/min) > 60 BUN/Creatinine Ratio (7 - 25 %) 16.7 Hemoglobin A1c (4.2 - 5.8 %) 5.1 Troponin I (<0.11 ng/ml) 0.52 *H 0.21 *H TSH (0.270 - 4.200 uIU/mL) 3.820 Coagulation APTT (25 - 37 SEC) > 120 *H 31 Hematology CBC w Diff NO MAN DIFF REQ WBC (4.8 - 10.8 /CUMM) 7.8 RBC (4.70 - 6.10 /CUMM) 4.60 L Hgb (14.0 - 18.0 G/DL) 15.2 Hct (42 - 52 %) 44.9 MCV (80.0 - 94.0 FL) 97.7 H MCH (27.0 - 31.0 PG) 33.0 H MCHC (33.0 - 37.0 G/DL) 33.8 RDW (11.5 - 14.5 %) 14.8 H Plt Count (130 - 400 /CUMM) 203 MPV (7.4 - 10.4 FL) 8.4 Gran % (42.2 - 75.2 %) 74.7 Lymphocytes % (20.5 - 51.1 %) 15.4 L Monocytes % (1.7 - 9.3 %) 8.0 Eosinophils % (0 - 5 %) 1.5 Basophils % (0.0 - 2.0 %) 0.4 Absolute Granulocytes (1.4 - 6.5 /CUMM) 5.8 Absolute Lymphocytes (1.2 - 3.4 /CUMM) 1.2 Absolute Monocytes (0.10 - 0.60 /CUMM) 0.6 Absolute Eosinophils (0.0 - 0.7 /CUMM) 0.1 Absolute Basophils (0.0 - 0.2 /CUMM) 0 Serology HSV I IgG Ab (() index) <0.90 HSV II IgG (() index) <0.90 12/20 12/20 12/20 1840 1515 1427 Chemistry Total Bilirubin (0.2 - 1.3 mg/dL) 1.6 H Direct Bilirubin (< 0.4 mg/dL) 0.5 H Troponin I (<0.11 ng/ml) 0.21 *H 0.13 *H Toxicology Urine Opiates Screen (>2000 NG/ML) < 100 Methadone Screen (>300 NG/ML) < 40 Barbiturate Screen (>200 NG/ML) < 60 Ur Phencyclidine Scrn (>25 NG/ML) < 6.00 Amphetamines Screen (>1000 NG/ML) < 100 U Benzodiazepines Scrn (>200 NG/ML) < 85 Urine Cocaine Screen (>300 NG/ML) < 50 Urine Cannabis Screen (>50 NG/ML) < 5.00 12/20 1212 Chemistry Sodium (137 - 145 mmol/L) 133 L Potassium (3.5 - 5.1 mmol/L) 3.6 Chloride (98 - 107 mmol/L) 89 L Carbon Dioxide (22 - 30 mmol/L) 29 Anion Gap (5 - 16) 15 BUN (9 - 20 mg/dL) 17 Creatinine (0.7 - 1.2 mg/dL) 0.7 Estimated GFR (>60 ml/min) > 60 BUN/Creatinine Ratio (7 - 25 %) 24.3 Glucose (65 - 99 mg/dL) 177 H Calcium (8.4 - 10.2 mg/dL) 9.4 Total Bilirubin (0.2 - 1.3 mg/dL) 1.7 H AST (17 - 59 U/L) 53 ALT (21 - 72 U/L) 47 Alkaline Phosphatase (< 127 U/L) 99 Troponin I (<0.11 ng/ml) 0.07 Total Protein (6.3 - 8.2 g/dL) 7.1 Albumin (3.5 - 5.0 g/dL) 4.2 Globulin (1.9 - 4.2 gm/dL) 2.9 Albumin/Globulin Ratio (1.1 - 2.2 %) 1.4 Coagulation PT (9.4 - 12.5 SEC) 11.3 INR (0.90 - 1.17) 1.04 APTT (25 - 37 SEC) 30 D-Dimer High Sensitivty (0 - 243 ng/ml) 295 H Hematology CBC w Diff NO MAN DIFF REQ WBC (4.8 - 10.8 /CUMM) 12.9 H RBC (4.70 - 6.10 /CUMM) 4.82 Hgb (14.0 - 18.0 G/DL) 15.9 Hct (42 - 52 %) 46.4 MCV (80.0 - 94.0 FL) 96.2 H MCH (27.0 - 31.0 PG) 32.9 H MCHC (33.0 - 37.0 G/DL) 34.2 RDW (11.5 - 14.5 %) 14.6 H Plt Count (130 - 400 /CUMM) 273 MPV (7.4 - 10.4 FL) 7.7 Gran % (42.2 - 75.2 %) 88.0 H Lymphocytes % (20.5 - 51.1 %) 4.5 L Monocytes % (1.7 - 9.3 %) 7.3 Eosinophils % (0 - 5 %) 0.1 Basophils % (0.0 - 2.0 %) 0.1 Absolute Granulocytes (1.4 - 6.5 /CUMM) 11.4 H Absolute Lymphocytes (1.2 - 3.4 /CUMM) 0.6 L Absolute Monocytes (0.10 - 0.60 /CUMM) 0.9 H Absolute Eosinophils (0.0 - 0.7 /CUMM) 0 Absolute Basophils (0.0 - 0.2 /CUMM) 0 Toxicology Serum Alcohol (<10 MG/DL) < 10.0
[2017-12-22 22:13] VITALS: BP 104/70
[2017-12-23 06:38] VITALS: BP 100/60
--- NOTE | 2017-12-23 07:06 | PN- Housestaff ---
Rian GARCIA,Valentin 12/23/17 0705: Subjective Follow-up For: Type 2 LA alcohol withdrawal oral ulcers Tele-Events Since Last Visit: SR 60s-100s Subjective: Patient seen and examined at bedside. He is resting comfortably. No acute events overnight. Yesterday in the afternoon the patient left the hospital briefly to smoke cigarette, he now has a home monitor. He continues to complain of oral pain and a mild headache this morning. He also states that he has mild chest pain, schizophrenia sharp, 3/10, nonradiating, no associated nausea, vomiting, shortness of breath, palpitations. Review of Systems Constitutional: Denies: chills, fever. EENTM: Reports: mouth pain. Cardiovascular: Reports: chest pain. Denies: palpitations. Respiratory: Reports: no symptoms. Gastrointestinal: Reports: no symptoms. Genitourinary: Reports: no symptoms. Musculoskeletal: Reports: no symptoms. Objective Last 24 Hrs of Vital Signs/I&O Vital Signs Date Time Temp Pulse Resp B/P B/P Pulse O2 O2 Flow FiO2 Mean Ox Delivery Rate 12/23 0638 97.1 79 18 100/60 95 Room Air 12/22 2213 97.8 83 18 104/70 97 Room Air 12/22 2208 78 104/70 12/22 2208 78 104/70 12/22 1733 93 120/84 12/22 1600 Room Air 12/22 1421 97.9 82 20 106/80 94 Room Air 12/22 0839 97.5 80 18 140/98 12/22 0839 97.5 80 18 140/98 12/22 0800 97.5 89 18 140/98 Intake & Output 12/23 0800 12/23 0000 12/22 1600 Intake Total 110 550 585 Output Total 400 Balance 110 150 585 Intake, IV 10 100 105 Intake, Oral 100 450 480 Output, Urine 400 Patient 213 lb Weight Weight Bed scale Measurement Method Physical Exam General Appearance: Alert, Oriented X3, Cooperative, No Acute Distress Skin Temp/Moisture Exam: Warm/Dry HEENT: hard palate ulcers unchanged Cardiovascular: Regular Rate, Normal S1, Normal S2, No Murmurs, pain reproducible with palpation Lungs: Clear to Auscultation, Normal Air Movement Abdomen: Normal Bowel Sounds, Soft, No Tenderness Neurological: Normal Speech, Normal Tone, Sensation Intact Current Medications: Current Medications Sig/[place] Start time Last Medication Dose Route Stop Time Status Admin Acetaminophen 500 MG ONCE ONE 12/22 2245 DC 12/22 PO 12/22 2246 2327 Aspirin 81 MG DAILY 12/21 1000 AC 12/22 PO 0839 Atorvastatin Calcium 40 MG 1700 12/20 1845 AC 12/22 PO 1731 Clonidine 0.1 MG TID 12/20 1600 AC 12/22 PO 2208 Gabapentin 300 MG Q8 12/20 1400 AC 12/23 PO 0626 Heparin Sodium 5,000 UNIT Q8 12/22 2200 AC 12/23 (Porcine) SC 0626 Heparin Sodium 25,000 UNIT Q24H 12/20 1645 DC 12/21 (Porcine) IV 1846 Sodium Chloride 500 ML Lidocaine 15 ML BID 12/20 2200 AC 12/22 PO 2205 Lorazepam 0.5 MG .STK-MED ONE 12/22 1150 DC PO 12/22 1151 Lorazepam 1.5 MG Q6 12/21 1800 AC 12/23 PO 0626 Lorazepam 0 Q1P PRN 12/20 1845 AC 12/21 IV 2020 Metoprolol Tartrate 50 MG BID 12/21 1000 AC 12/22 PO 2208 Morphine Sulfate 2 MG Q4P PRN 12/20 1830 AC 12/21 IV 2248 Nicotine 14 MG DAILY 12/22 1621 AC 12/22 TOP 1900 Nitroglycerin 0.4 MG Q 5 MINUTES X 3 DO.. 12/20 1845 AC SL Pantoprazole Sodium 40 MG BID 12/21 2200 AC 12/22 IV 2205 Potassium Chloride 40 MEQ ONCE ONE 12/22 0930 DC 12/22 PO 12/22 0931 1153 Thiamine HCl 100 MG 2100 12/20 2100 DC 12/22 Sodium Chloride 50 ML IV 12/22 2159 2206 Last 24 Hrs of Lab/Yash Results Last 24 Hrs of Labs/Mics: Laboratory Tests 12/22/17 1430: APTT 31 Orders CIWA Score (last 24 hrs): 0-4 Assessment/Plan Assessment: Patient is a 52-year-old male with a PMH significant for alcohol use disorder, HTN, depression and presented to the [facility] ED with chest pain, described as a tightness and severe in nature. #Type 2 LA Patient reported chest pain this morning, pain was reproducible in the mid chest , no associated shortness of breath, nausea, diaphoresis, palpitations - Continue aspirin, statin, nitroglycerin when necessary, metoprolol - Patient will require close cardiology follow-up as an outpatient for stress test - Alcohol and smoking cessation counseling given - Cardiology recommendations appreciated #Alcohol use disorder, with alcohol withdrawal Patient did not require breakthrough Ativan for CIWA in the last 24 hours -Continue CIWA protocol -We will taper schedule that appointment today #Hypokalemia -Repleted orally -Continue to Follow BEP #guaiac + stool CBC has remained stable -Patient will require outpatient GI follow-up #HTN -Continue current regimen and monitor BEP closely #Oral ulcer -Continue pain management with lidocaine oral rinse -HSV negative - discussed case with Dr. Garcia. He recommends outpatient follow-up, given onset approximately 2 weeks ago too early for biopsy and no urgent need for inpatient workup. On his differential, although low down, is Tad's granulomatosis, more likely is traumatic injury Diet: Heart healthy diet DVT prophylaxis: SC heparin, ALPS CODE STATUS: Full code Problem List: 1. Hard palate ulcer 2. Type 2 myocardial infarction 3. Alcohol intoxication 4. Alcohol withdrawal Pain Ratin Pain Location: head, chest, mouth Pain Goal: Pain 4 or less Pain Plan: pain pathway Tomorrow's Labs & Rationales: BEP, Mg Tammie Jean-Baptiste MD 12/23/17 1057: Attending MD Review Statement Attending Statement Attending MD Statement: examined this patient, discuss w/resident/PA/COPY WRITER, agreed w/resident/PA/COPY WRITER, reviewed EMR data (avail) Attending Assessment/Plan: 52M PMH HTN, alcohol use disorder presenting with chest pain at rest since this morning. Mid-sternal, non-radiating, /10, associted with diaphoresis but not SOB or palpitations, not worse wiwth exertion. No family or personal history of CAD, active smoker. Showing signs of agitation and alcohol withdrawal. EKG shows non-specific changes with widening of QRS in anterior leads and questionable ST elevations. Also complains of painful sores on hard palate. Reports continued severe mouth pain from oral ulcers. Also reports several episodes of loose stools and urinary frequency. Every few hours experiences chest pain radiating to left hand with deep inspiration. Troponin peaked at 0.70. No EKG changes. HSV 1 and 2 are negative. Requiring PRN IV Ativan 1. NSTEMI 2. Alcohol withdrawal, uncomplicated 3. Aphthous ulcers of the hard palate Plan - Continue on telemetry - Send d-dimer, urinarlysis, C.diff - Obtain formal ENT consult given continued pain - Taper Ativan to 1mg q8h - Replete potassium with goal >4.0, magnesium goal > 2.0 - ASA, statin, b-aide, SL nitro - Cardiology consult - Ativan PRN CIWA - Lidocaine rinse for mouth pain - Continue home meds - DVT PPx
[2017-12-23 07:49] LABS: ABSOLUTE BASOPHIL COUNT 0 /CUMM (0.0-0.2); ABSOLUTE EOSINOPHIL COUNT 0.2 /CUMM (0.0-0.7); ABSOLUTE GRANULOCYTE CT 6.3 /CUMM (1.4-6.5); ABSOLUTE LYMPH COUNT 1.2 /CUMM (1.2-3.4); ABSOLUTE MONOCYTE COUNT 0.4 /CUMM (0.10-0.60); BASOPHIL % 0.3 % (0.0-2.0); EOSINOPHIL % 2.1 % (0-5); GRANULOCYTE % 77.8 % (42.2-75.2); HEMATOCRIT 48.5 % (42-52); MEAN CORPUSCULAR HGB 32.9 PG (27.0-31.0); MEAN CORPUSCULAR HGB CONC 33.7 G/DL (33.0-37.0); MEAN CORPUSCULAR VOLUME 97.8 FL (80.0-94.0); MEAN PLATELET VOLUME 8.5 FL (7.4-10.4); PLATELET COUNT 191 /CUMM (130-400); RBC DISTRIBUTION WIDTH 14.6 % (11.5-14.5); RED BLOOD CELL CT 4.97 /CUMM (4.70-6.10)
--- NOTE | 2017-12-23 11:57 | Cons- Ear,Nose&Throat ---
General Information and HPI Consulting Request Date of Consult: 12/23/17 Requested By: Tammie Jean-Baptiste MD Reason for Consult: SORE THROAT AND ULCERATION LESION FOR TWO WEEKS IN THE HARD PALATE Source of Information: patient, old records Exam Limitations: no limitations History of Present Illness: Patient jim he had Strep sore throat more then two weeks ago,He was put on Augmentin which seems to control his sore throat, but two weeks ago he had sudden onset of soreness in the hard palate area. 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 Home Smoking Status: Current Everyday Smoker ETOH Use: alcoholic Illicit Drug Use: denies illicit drug use Review of Systems Review of Systems: REVIEWED Exam & Diagnostic Data Vital Signs and I&O Vital Signs Date Time Temp Pulse Resp B/P B/P Pulse O2 O2 Flow FiO2 Mean Ox Delivery Rate 12/23 0739 79 100/60 12/23 0738 79 100/60 12/23 0638 97.1 79 18 100/60 95 Room Air 12/22 2213 97.8 83 18 104/70 97 Room Air 12/23 2207 78 104/70 12/23 2207 78 104/70 12/22 1733 93 120/84 12/22 1600 Room Air 12/22 1421 97.9 82 20 106/80 94 Room Air Intake & Output 12/23 0812/23 0000 12/22 1600 12/22 0000 Intake Total 110 550 585 220 200 Output Total 400 400 Balance 110 150 585 -180 200 Intake, IV 10 100 105 120 Intake, Oral 100 450 480 100 200 Output, Urine 400 400 Patient 213 lb Weight Weight Bed scale Measurement Method Patient is in some distress because of the pain, His facial ski show reddish patches which he said is form Rosea,No other skin lesion..Ears are clear,Nose , normal .Oral cavity show two deep ulcerative lesions with yellowish exudates about one by one cm . Lips are dry,Neck is neg for any mass Assessment/Plan Assessment/Plan Most like drug reaction by history and presentations. Limited presentation of Ulisses Paul syndrome cannot be ruled out. Consider Neurosurgery Physician consultation for facial erythematous change and ulcerations in the hard palate. Would start with Decadron for now. Consider biopsy if not better better in one or two weeks ,Biopsy can be done as out patient in the office. Discussed ion Call. Consult Acknowledgment - Thank you for your consult request.
[2017-12-23 14:09] VITALS: BP 110/80
[2017-12-23 23:08] VITALS: BP 118/60
[2017-12-24 06:02] VITALS: BP 110/80
--- NOTE | 2017-12-24 07:14 | PN- Housestaff ---
Rian GARCIA,Valentin 12/24/1714: Subjective Follow-up For: Type 2 [place] Major apthous ulcers Alcohol withdrawal Tele-Events Since Last Visit: SR, HR 50s-100s Subjective: Patient was seen and examined at bedside. He had no acute events overnight. He is complaining of significant pain of the mouth secondary to his abscess ulcers. He has minimal relief from the analgesic medication and multiple topical medications being given. He reports intermittent mild chest pain as well, lasting only a few minutes at a time. Review of Systems Constitutional: Reports: no symptoms. EENTM: Reports: mouth pain. Cardiovascular: Reports: chest pain (mild, intermitent). Respiratory: Reports: no symptoms. Gastrointestinal: Reports: no symptoms. Genitourinary: Reports: no symptoms. Musculoskeletal: Reports: no symptoms. Skin: Reports: rash. Objective Last 24 Hrs of Vital Signs/I&O Vital Signs Date Time Temp Pulse Resp B/P B/P Pulse O2 O2 Flow FiO2 Mean Ox Delivery Rate 12/24 0602 98.2 75 18 110/80 96 Room Air 12/23 2308 98.0 93 19 118/60 97 Room Air 12/23 2140 91 112/62 12/23 2139 91 118/62 12/23 1600 Room Air 12/23 1447 84 110/80 12/23 1409 97.6 84 18 110/80 97 Room Air 12/23 0739 79 100/60 12/23 0738 79 100/60 Intake & Output 12/24 0800 12/24 0000 12/23 1600 Intake Total 161 825 800 Output Total 650 Balance 161 175 800 Intake, IV 61 175 Intake, Oral 100 650 800 Number 0 Bowel Movements Output, Urine 650 Patient 217 lb Weight Physical Exam General Appearance: Alert, Oriented X3, Cooperative Skin: erythematous scaly rash on the face, chest and back Skin Temp/Moisture Exam: Warm/Dry HEENT: 2 large ulcerations of the hard palate Cardiovascular: Regular Rate, Normal S1, Normal S2 Lungs: Clear to Auscultation, Normal Air Movement Abdomen: Normal Bowel Sounds, Soft, No Tenderness Current Medications: Current Medications Sig/[place] Start time Last Medication Dose Route Stop Time Status Admin Acetaminophen 1,000 MG Q6P PRN 12/23 1100 AC 12/23 N/A 1 UNIT IV 1946 Acetaminophen 650 MG ONCE ONE 12/23 07 DC 12/23 PO 12/23 0731 0738 Aspirin 81 MG DAILY 12/21 1000 AC 12/23 PO 0738 Atorvastatin Calcium 40 MG 1700 12/20 1845 AC 12/23 PO 1635 Chlorhexidine 15 ML TID 12/23 1654 AC 12/23 Gluconate PO 2135 Clonidine 0.1 MG TID 12/20 1600 AC 12/23 PO 2139 Dexamethasone 4 MG Q8 12/23 1400 AC 12/24 Dextrose/Water 50 ML IV 0612 Gabapentin 300 MG Q8 12/20 1400 AC 12/24 PO 0614 Heparin Sodium 5,000 UNIT Q8 12/22 2200 AC 12/24 (Porcine) SC 0614 Hydromorphone HCl 2 MG ONCE ONE 12/23 1430 DC 12/23 PO 12/23 1431 1424 Lidocaine 15 ML BID 12/20 2200 AC 12/23 PO 2004 Lidocaine/Diphenhydr/ 30 ML AC 12/23 1645 AC 12/24 Alum/Mg/Simeth PO 0615 Lorazepam 1 MG TID 12/23 1400 AC 12/23 PO 2133 Lorazepam 1.5 MG Q6 12/21 1800 DC 12/23 PO 0626 Lorazepam 0 Q1P PRN 12/20 1845 AC 12/21 IV 2020 Magnesium Chloride 64 MG DAILY 12/23 0953 AC 12/23 PO 1158 Metoprolol Tartrate 50 MG BID 12/21 1000 AC 12/23 PO 2140 Morphine Sulfate 2 MG ONCE ONE 12/23 1100 DC 12/23 IV 12/23 1101 1105 Morphine Sulfate 2 MG Q4P PRN 12/20 1830 AC 12/23 IV 2147 Nicotine 14 MG DAILY 12/22 1621 AC 12/23 TOP 0745 Nitroglycerin 0.4 MG Q 5 MINUTES X 3 DO.. 12/20 1845 AC SL Omeprazole 20 MG BID 12/23 2100 AC 12/23 PO 2133 Pantoprazole Sodium 40 MG BID 12/21 2200 DC 12/22 IV 2205 Patient Medication 1 ED ONE ONE 12/23 0945 DC 12/23 Teaching ED 12/23 0946 1006 Potassium Chloride 40 MEQ Q1H 12/23 1100 DC 12/23 PO 12/23 1201 1202 Triamcinolone 1 CRISTOFER TID 12/23 1719 AC 12/23 Acetonide TOP 2135 Last 24 Hrs of Lab/Yash Results Last 24 Hrs of Labs/Mics: Laboratory Tests 12/24/17 0635: Sodium Pending, Potassium Pending, Chloride Pending, Carbon Dioxide Pending, Anion Gap Pending, BUN Pending, Creatinine Pending, BUN/Creatinine Ratio Pending , Magnesium Pending, Vitamin B12 Pending, Ref Lab Test Result Cancelled 12/24/17 0600: Vitamin B6 Pending 12/23/17 1840: Urine Color YEL, Urine Clarity CLEAR, Urine pH 6.5, Ur Specific [place] 1.015, Urine Protein NEG, Urine Ketones NEG, Urine Nitrite NEG, Urine Bilirubin NEG, Urine Urobilinogen 0.2, Ur Leukocyte Esterase NEG, Ur Microscopic EXAM NOT REQUIRED, Urine Hemoglobin NEG, Urine Glucose NEG 12/23/17 1334: D-Dimer High Sensitivty < 200 Microbiology 12/23 1433 HEAD/NECK: Routine Culture - RECD 12/23 0954 STOOL: Clostridium difficile Toxin A & B - COLB Orders CIWA Score (last 24 hrs): 0-5 Assessment/Plan Assessment: Patient is a 52-year-old male with a PMH significant for alcohol use disorder, HTN, depression and presented to the [facility] ED with chest pain, described as a tightness and severe in nature. #Type 2 [place] Patient continues to get mild intermittent chest pain, he is advised to assess the nurse for nitroglycerin if it recurs. - Continue aspirin, statin, nitroglycerin when necessary, metoprolol - Patient will require close cardiology follow-up as an outpatient for stress test - Alcohol and smoking cessation counseling given - Cardiology recommendations appreciated #Alcohol use disorder, with alcohol withdrawal Patient did not require breakthrough Ativan for CIWA in the last 24 hours -Continue CIWA protocol -We will continue taper schedule that appointment today -Patient will be stable for discharge home tomorrow #Mild hyperkalemia -Continue to Follow BEP #guaiac + stool CBC has remained stable -Patient will require outpatient GI follow-up #Oral ulcer Discussed case with on-call payroll technician, also was evaluated by ENT. Pain is worsening, ulcerations are unchanged in size -Started on Decadron yesterday -Started on topical steroid ointment -Continue with Magic mouthwash and lidocaine rinse -Follow-up candidal culture -will taper steroids -Follow-up with ENT and dermatology as an outpatient Diet: Heart healthy diet DVT prophylaxis: SC heparin, ALPS CODE STATUS: Full code Problem List: 1. Type 2 myocardial infarction 2. Hard palate ulcer Pain Ratin Pain Location: mouth Pain Goal: Pain 4 or less Pain Plan: pain pathway Tomorrow's Labs & Rationales: BEP, Mg Estiven GARCIA,Tammie 12/24/17 1105: Attending MD Review Statement Attending Statement Attending MD Statement: examined this patient, discuss w/resident/PA/APPLICATION DEVELOPER MANAGER, agreed w/resident/PA/APPLICATION DEVELOPER MANAGER, reviewed EMR data (avail) Attending Assessment/Plan: 52M PMH HTN, alcohol use disorder presenting with chest pain at rest since this morning. Mid-sternal, non-radiating, 03/22, associted with diaphoresis but not SOB or palpitations, not worse wiwth exertion. No family or personal history of CAD, active smoker. Showing signs of agitation and alcohol withdrawal. EKG shows non-specific changes with widening of QRS in anterior leads and questionable ST elevations. Also complains of painful sores on hard palate. Reports continued severe mouth pain from oral ulcers. Loose stools, urinary frequency, and chest pain have resolved. UA and d-dimer negative. Spoke with dermatology and ENT yesterday who recommend mouth rinses and Dexamethasone. No longer requiring PRN Ativan. 1. NSTEMI 2. Alcohol withdrawal, uncomplicated 3. Aphthous ulcers of the hard palate Plan - Discontinue telemetry - Taper Ativan to 1mg q12h, with 1 tab tomorrow and then stop - Taper Dexamethasone to 4mg q12h, followed by 2mg q12h tomorrow - Replete potassium with goal >4.0, magnesium goal > 2.0 - ASA, statin, b-aide, SL nitro - Follow cardiology, ENT, dermatology recommendations - Ativan PRN CIWA - Lidocaine rinse for mouth pain - Continue home meds - DVT PPx - Anticipated discharge tomorrow on Prednisone taper, no further benzos, outpatient ENT, cardiology and dermatology follow up for oral biopsy and cardiac stress test
[2017-12-24 14:56] VITALS: BP 126/78
[2017-12-24] MEDS ORDERED: LIDOCAINE HCL V15 ML PO (19:40)
[2017-12-24] MEDS ORDERED: METOPROLOL TART50 M1 PO (19:40)
[2017-12-24] MEDS ORDERED: TRIAMCINOLONE A15 G3 TOP (19:40)
[2017-12-24] MEDS ORDERED: OXYCODONE HCL5 M1 PO (19:40)
[2017-12-24] MEDS ORDERED: ATORVASTATIN CA40 M1 PO (19:40)
[2017-12-24] MEDS ORDERED: NITROSTAT0.4 M1 SL (19:40)
[2017-12-24] MEDS ORDERED: PERIDEX473 ML PO (19:40)
[2017-12-24] MEDS ORDERED: ASPIRIN81 M4 PO (19:40)
--- NOTE | 2017-12-24 19:49 | Patient Discharge Instructions ---
Discharge Instructions General Discharge Information You were seen/treated for: Type 2 ID Alcohol withdrawal Apthous Ulcer Guaiac positive stool Special Instructions: Follow-up with your primary care physician within 1 week of discharge. Follow-up with Dr. Oliveira, cardiology, within 1 week of discharge for outpatient stress testing. We have provided you with a referral. Follow-up with Dr. Espinal, ENT, for futher care of your oral ulcers. Follow-up with Dr. Ang, Dermatology, or your own panel flow machine operator for dermatologic care. Follow-up with Dr. White for GI care based on guaiac positive stool. We have provided you with a referral. Take all medications as directed. Call your doctor or return to the ER immediately if you should have chest pain, shortness of breath, lightheadedness, or loss of consciousness. Acute Coronary Syndrome Inclusion Criteria At DC or during hospital stay patient has or had the following: ACS DIAGNOSIS No Discharge Core Measures Meds if any: Prescribed or Continued at Discharge Meds if any: NOT Prescribed or Continued at Discharge Congestive Heart Failure Inclusion Criteria At DC or during hospital stay patient has or had the following: CHF DIAGNOSIS No Discharge Core Measures Meds if any: Prescribed or Continued at Discharge Meds if any: NOT Prescribed or Continued at Discharge Cerebrovascular accident Inclusion Criteria At DC or during hospital stay patient has or had the following: CVA/TIA Diagnosis No Discharge Core Measures Meds if any: Prescribed or Continued at Discharge Meds if any: NOT Prescribed or Continued at Discharge Venous thromboembolism Inclusion Criteria VTE Diagnosis No VTE Type NONE VTE Confirmed by (Test) NONE Discharge Core Measures - Per Current guidelines, there needs to be overlap - treatment for the first 5 days of Warfarin therapy. - If discharged on Warfarin prior to 5 days of - overlap therapy, the patient will need to be - assessed for post discharge needs including - *Post discharge parental anticoagulation - *Warfarin and/or parental anticoagulation education - *Follow up date to check INR post discharge At least 5 days overlap therapy as Inpatient No Meds if any: Prescribed or Continued at Discharge Note: Overlap Therapy is Warfarin and Anticoagulant Meds if any: NOT Prescribed or Continued at Discharge
[2017-12-24 22:59] VITALS: BP 118/78
[2017-12-25 07:05] VITALS: BP 120/86
[2017-12-25 08:45] VITALS: BP 120/86
--- NOTE | 2017-12-25 08:45 | PN- Housestaff ---
StephonPlain 12/25/17 0845: Subjective Follow-up For: Type 2 [place] Major apthous ulcers Alcohol withdrawal Tele-Events Since Last Visit: Sinus rhythm with heart rate between 6369 Subjective: No overnight events. Seen and examined this morning. Patient denied any chest pain, short of breath, nausea, vomiting, chills, fever. He was reporting a burning sensation in the morning due to aphthous ulcers. Review of Systems Constitutional: Denies: chills, fever. EENTM: Reports: no symptoms. Cardiovascular: Denies: chest pain, palpitations. Respiratory: Denies: cough, short of breath, sputum production. Gastrointestinal: Denies: abdominal pain, diarrhea, nausea. Genitourinary: Reports: no symptoms. Musculoskeletal: Reports: no symptoms. Neurological/Psychological: Reports: no symptoms. Objective Last 24 Hrs of Vital Signs/I&O Vital Signs Date Time Temp Pulse Resp B/P B/P Pulse O2 O2 Flow FiO2 Mean Ox Delivery Rate 12/25 07 98.0 64 20 120/86 99 12/24 2259 98.4 83 16 118/78 96 Room Air 12/24 205 90 120/88 12/243 120/889 12/24 1735 90 12/24 1456 97.3 91 18 126/78 91 Intake & Output 12/25 1600 12/25 0800 12/25 0000 Intake Total Output Total Balance Patient 215 lb Weight Physical Exam General Appearance: Alert, Oriented X3, Cooperative Skin: No Rashes Skin Temp/Moisture Exam: Warm/Dry Sepsis Skin Exam (color): Normal for Ethnicity HEENT: Atraumatic, EOMI Neck: Supple Cardiovascular: Normal S1, Normal S2 Lungs: Clear to Auscultation Abdomen: Soft, No Tenderness Neurological: Normal Speech, Strength at 5/5 X4 Ext, Normal Tone Extremities: No Edema Assessment/Plan Assessment: Patient is a 52-year-old male with a PMH significant for alcohol use disorder, HTN, depression and presented to the [facility] ED with chest pain, described as a tightness and severe in nature. Type 2 MS: Patient continues to get mild intermittent chest pain, he is advised to assess the nurse for nitroglycerin if it recurs. - Continue aspirin, statin, nitroglycerin when necessary, metoprolol - Patient will require close cardiology follow-up as an outpatient for stress test - Alcohol and smoking cessation counseling given - Cardiology recommendations appreciated Alcohol withdrawal: Patient did not require breakthrough Ativan for CIWA in the last 24 hours -Continue CIWA protocol -We will continue taper schedule that appointment today -Patient will be stable for discharge home. Mild hyperkalemia: -Continue to Follow GERHARD guaiac + stool: CBC has remained stable -Patient will require outpatient GI follow-up Oral ulcer: Discussed case with on-call asphalt still operator, also was evaluated by ENT. Pain is worsening, ulcerations are unchanged in size -Started on Decadron yesterday -Started on topical steroid ointment -Continue with Magic mouthwash and lidocaine rinse -Follow-up candidal culture -will taper steroids -Follow-up with ENT and dermatology as an outpatient DVT prophylaxis: SC heparin, ALPS CODE STATUS: Full code Problem List: 1. Aphthous ulcer of mouth 2. Type 2 myocardial infarction 3. Alcohol withdrawal Pain Ratin Pain Location: none Pain Goal: Remain pain free Pain Plan: pain pathway Tomorrow's Labs & Rationales: Tammie Colbert MD 12/25/17 1706: Attending MD Review Statement Attending Statement Attending MD Statement: examined this patient, discuss w/resident/PA/SURVEY CHIEF, agreed w/resident/PA/SURVEY CHIEF, reviewed EMR data (avail) Attending Assessment/Plan: 52M PMH HTN, alcohol use disorder presenting with chest pain at rest since this morning. Mid-sternal, non-radiating, 7/10, associted with diaphoresis but not SOB or palpitations, not worse wiwth exertion. No family or personal history of CAD, active smoker. Showing signs of agitation and alcohol withdrawal. EKG shows non-specific changes with widening of QRS in anterior leads and questionable ST elevations. Also complains of painful sores on hard palate. Reports continued severe mouth pain from oral ulcers. Loose stools, urinary frequency, and chest pain have resolved. UA and d-dimer negative. Spoke with dermatology and ENT yesterday who recommend mouth rinses and Dexamethasone. No longer requiring PRN Ativan. 1. NSTEMI 2. Alcohol withdrawal, uncomplicated 3. Aphthous ulcers of the hard palate Plan - Stable for discharge home - No further Ativan - Prednisone taper - Oxycodone for mouth pain - ASA, statin, b-aide, SL nitro - Follow cardiology, ENT, dermatology as outpatient - Chlorhexidine rinse - Continue home meds
[2017-12-25] MEDS ORDERED: LIDOCAINE HCL V15 ML PO (13:26)
[2017-12-25] MEDS ORDERED: PERIDEX473 ML PO (13:26)
[2017-12-25] MEDS ORDERED: METOPROLOL TART50 M1 PO (13:28)
[2017-12-25] MEDS ORDERED: NITROSTAT0.4 M1 SL (13:28)
[2017-12-25] MEDS ORDERED: ATORVASTATIN CA40 M1 PO (13:28)
[2017-12-25] MEDS ORDERED: TRIAMCINOLONE A15 G3 TOP (13:29)
[2017-12-25] MEDS ORDERED: OXYCODONE HCL5 M1 PO (14:05)
== END 2017-12-25 13:39 | DRG 281 ==
LOC: ERH 11:26 → ERHI 16:34 → 1NO 16:34 → ENRESERV 12-21 18:36 → ENTRNSPT 12-21 19:22 → EDTRNSPTSTS 12-21 19:36 → EDTRNSPT 12-21 19:36 → 1NO 12-21 19:46 → CMPTRNSPT 12-21 19:57 → 1NO 12-25 13:39
PROVIDERS: Dermatology; Internal Medicine; Physician Assistant; Student in an Organized Health Care Education/Training Program
DX: I21.A1 Myocardial infarction type 2 (principal); E87.1 Hypo-osmolality and hyponatremia; F10.239 Alcohol dependence with withdrawal, unspecified; K92.1 Melena; K12.0 Recurrent oral aphthae; E87.6 Hypokalemia; F32.9 Major depressive disorder, single episode, unspecified; I10 Essential (primary) hypertension; D72.829 Elevated white blood cell count, unspecified; F17.200 Nicotine dependence, unspecified, uncomplicated
CPT/HCPCS: 1NSP; 86695; ERO; 36592; 71046; 80307; 81003; 82436; 93005; 93010; 93306; 96374; 96375; 99291; G0480; J0131; J1100; J1644; J3490

== ENCOUNTER 2018-01-01 09:19 | Inpatient (IN) | payer OTHER ==
[~2018-01-01] VITALS: Ht 177.8 cm; Wt 90.7 kg
[~2018-01-01 09:19] MED LIST changes: +AMLODIPINE BESYL5 M1 PO; +ASPIRIN81 M4 PO; +ATORVASTATIN CA40 M1 PO; +LIDOCAINE HCL V15 ML PO; +METOPROLOL TART50 M1 PO; +NITROSTAT0.4 M1 SL; +OXYCODONE HCL5 M1 PO; +PERIDEX473 ML PO; +TRIAMCINOLONE A15 G3 TOP
[2018-01-01 09:30] VITALS: BP 158/97
--- NOTE | 2018-01-01 09:36 | ED CARDIAC/CP/PALPITATIONS ---
History of Present Illness General Chief Complaint: Chest Pain Stated Complaint: CP Source: patient ( ), old records Exam Limitations: no limitations Vital Signs & Intake/Output Vital Signs & Intake/Output Vital Signs Date Time Temp Pulse Resp B/P B/P Pulse O2 O2 Flow FiO2 Mean Ox Delivery Rate 01/01 1336 98.8 110 16 118/72 01/01 1334 98.8 110 16 118/72 01/01 1332 98.8 110 18 118/72 97 Room Air Room Air 01/01 1136 98.6 87 18 125/81 01/01 1110 98.6 87 18 125/81 98 Room Air 01/01 1040 98.6 88 15 126/72 01/01 1039 98.6 87 15 126/72 98 Nasal 2.0L Cannula 01/01 0954 92 Room Air Room Air 01/01 0951 92 15 142/88 95 Nasal 2.0L Cannula 01/01 0947 90 15 150/95 97 Room Air Room Air 01/01 0930 97.7 104 15 158/97 01/01 0925 97.7 104 15 158/97 100 Room Air Room Air Reconcile Medications Amlodipine Besylate 5 MG TABLET 1 TAB PO DAILY HEART (Reported) Aspirin (Aspirin*) 81 MG TAB.CHEW 81 MG PO DAILY [facility] Atorvastatin Calcium 40 MG TABLET 40 MG PO 1700 [facility] . Chlorhexidine Gluconate (Peridex) 0.12 % MOUTHWASH 15 ML PO TID Oral Ulcers . Folic Acid (Unknown Strength) CAPSULE (Unknown Dose) PO DAILY SUPPLEMENT ( Reported) Lidocaine HCl (Lidocaine HCl Viscous) 2 % SOLUTION 15 ML PO BID Oral Ulcers . Metoprolol Tartrate 50 MG TABLET 50 MG PO BID [facility] . Nitroglycerin (Nitrostat) 0.4 MG TAB.SUBL 0.4 MG SL Q 5 MINUTES X 3 DOSE PRN CHEST PAIN . Oxycodone HCl 5 MG TABLET 5 MG PO Q6-8P PRN PAIN SCALE 7-10 (SEVERE) . Thiamine HCl (B-1) (Unknown Strength) TABLET (Unknown Dose) PO DAILY SUPPLEMENT (Reported) Triamcinolone Acetonide 0.1 % OINT...G. 1 CRISTOFER TOP TID Oral Ulcers . Triage Note: PT DIRECTLY TO ER ROOM 2 FROM [facility]: C/C 1 DAY HX OF C/P UPON WAKING UP, MID-STERNAL, NON-RADIATING. WAS ADMITTED TO FOR SAME LAST WEEK. +SOB, - NAUSEA, -DIAPHORESIS. Triage Nurses Notes Reviewed? yes Onset: Abrupt Duration: hour(s): (4), constant Quality/Severity: moderate, severe Location: central Radiation: no radiation Activities at Onset: none HPI: 52-year-old male comes into the emergency room with complaints of chest pain. Patient reports that symptoms began 4 hours ago. Patient was recently here in the hospital. He reports that he had a heart attack. He does not know who he saw or any of the specifics of anything. He reports that he is having chest pressure and feels like someone is sitting on his chest. Symptoms began about 4 hours ago. He also has a history of alcoholISM. Patient reports that his last drink was yesterday. He denies any history of seizure withdrawal. He has some associated shortness of breath. Denies any fever chills vomiting diaphoresis or vomiting. Pain is nonradiating. (Johnson Xiong) Allergies Coded Allergies: NO KNOWN ALLERGIES (NONE 01/01/18) (Darelen GARCIA,Chidi Tafoya) Past History Travel History Traveled to [facility] past 21 day No Medical History Any Pertinent Medical History? see below for history Neurological: NONE EENT: NONE Cardiovascular: hypertension Respiratory: NONE Gastrointestinal: NONE Hepatic: NONE Renal: NONE Musculoskeletal: TENDINITIS Psychiatric: alcohol dependence, depression Endocrine: NONE Blood Disorders: NONE Cancer(s): NONE DELIVERY COORDINATOR/Reproductive: NONE History of MRSA: No History of VRE: No History of CDIFF: No Surgical History Surgical History: non-contributory Psychosocial History Who do you live with Spouse What is your primary language Tuvaluan Tobacco Use: Current Daily Use Daily Tobacco Use Amount/Type: => 5 Cigarettes daily ETOH Use: heavy use Family History Hx Contributory? No (Johnson Xiong) Review of Systems Review of Systems Constitutional: Reports: no symptoms. EENTM: Reports: no symptoms. Respiratory: Reports: see HPI. Cardiovascular: Reports: see HPI. GI: Reports: no symptoms. Genitourinary: Reports: no symptoms. Musculoskeletal: Reports: no symptoms. Skin: Reports: no symptoms. Neurological/Psychological: Reports: see HPI. Hematologic/Endocrine: Reports: no symptoms. Immunologic/Allergic: Reports: no symptoms. All Other Systems: Reviewed and Negative (Johnson Xiong) Physical Exam Physical Exam General Appearance: alert, awake, moderate distress Head: atraumatic Eyes: Bilateral: normal appearance. Ears, Nose, Throat: normal ENT inspection, hearing grossly normal Neck: normal inspection Respiratory: respiratory distress (moderate resp distress) Cardiovascular: regular rate/rhythm, tachycardia Back: normal inspection Extremities: normal inspection Neurologic/Psych: awake, alert, oriented x 3 Skin: intact, normal color Core Measures ACS in differential dx? Yes CVA/TIA Diagnosis No Sepsis Present: No Sepsis Focused Exam Completed? No (Johnson Xiong) Progress Differential Diagnosis: AMI, aortic dissection, costochondritis, musculoskeletal pain, myocarditis, pericarditis, pneumonia, pneumothorax, pulmonary embolism, unstable angina Plan of Care: Orders Procedure Date/time Status MAGNESIUM 01/02 0600 Active HEPATIC FUNCTION PANEL 01/02 0600 Active CBC WITHOUT DIFFERENTIAL 01/02 0600 Active BASIC ELECTROLYTES PLUS BUN&CR 01/02 0600 Active Heart Healthy Diet 01/01 L Complete Heart Healthy Diet 01/01 D Active TROPONIN LEVEL 01/01 2200 Active EKG 01/01 2200 Active TROPONIN LEVEL 01/01 1600 Active EKG 01/01 1600 Active TRC EVALUATION (GEN) 01/01 1306 Active OXYGEN SETUP (GEN) 01/01 1306 Active Pathway - chart 01/01 1306 Active House Staff 01/01 1306 Active URINALYSIS 01/01 1306 Active LACTIC ACID 01/01 1306 Complete Patient Data 01/01 1200 Active ED Holding Orders 01/01 1138 Active Admit to inpatient 01/01 1138 Active Vital Signs 01/01 1138 Active Code Status 01/01 1138 Active Telemetry/Distillery Worker General 01/01 0952 Active PARTIAL THROMBOPLASTIN TIME 01/01 0940 Complete PROTHROMBIN TIME 01/01 0940 Complete D-DIMER 01/01 0940 Complete Add-on Test (ER Only) 01/01 0934 Active CIWA 01/01 0934 Active TROPONIN LEVEL 01/01 0934 Complete COMPREHENSIVE METABOLIC PANEL 01/01 0934 Complete CBC WITHOUT DIFFERENTIAL 01/01 0934 Complete Intake & Output 01/01 0927 Active EKG 01/01 0920 Active VTE Mechanical Prophylaxis 01/01 UNK Active Hemoccult 01/01 UNK Active Activity/Ambulation 01/01 UNK Active Current Medications Sig/[place] Start time Last Medication Dose Stop Time Status Admin Aspirin 81 MG DAILY 04/22 0900 AC (Aspirin) Metoprolol Tartrate 50 MG BID 01/01 2100 AC (Lopressor) Atorvastatin Calcium 40 MG 1700 01/01 1700 AC (Lipitor) Chlorhexidine 15 ML TID 01/01 1400 AC Gluconate (Peridex 0.12% Oral Rinse) Heparin Sodium 5,000 UNIT Q8 01/01 1400 AC (Porcine) Lorazepam 0 Q1P PRN 01/01 1315 AC 01/01 (Ativan) 1447 Nitroglycerin 0.4 MG Q 5 MINUTES X 3 DO.. 01/01 1315 AC (Nitrostat) Thiamine HCl 100 MG DAILY 01/01 1315 AC 01/01 (Vitamin B1) 1336 Amlodipine Besylate 5 MG DAILY 01/01 1307 AC 01/01 (Norvasc) 1336 Folic Acid 1 MG DAILY 01/01 1305 AC 01/01 (Folic Acid) 1336 Multivitamins 1 TAB DAILY 01/01 1305 AC 01/01 (Theragran Vitamins) 1336 Lorazepam 2 MG Q6 01/01 1303 AC 01/01 (Ativan) 1336 Acetaminophen 650 MG Q6P PRN 01/01 1245 AC (Tylenol) Oxycodone/ 1 TAB Q6P PRN 01/01 1245 AC Acetaminophen (Percocet) Oxycodone/ 2 TAB Q6P PRN 01/01 1245 AC Acetaminophen (Percocet) Laboratory Tests 01/01/18 1330: Lactic Acid 1.4 01/01/18 1312: D-Dimer High Sensitivty Cancelled 01/01/18 0940: Anion Gap 22 H, Estimated GFR > 60, BUN/Creatinine Ratio 15.6, Glucose 76, Calcium 9.3, Total Bilirubin 1.8 H, AST 83 H, ALT 78 H, Alkaline Phosphatase 125, Troponin I < 0.01, Total Protein 7.7, Albumin 4.8, Globulin 2.9, Albumin/ Globulin Ratio 1.7, PT 11.0, INR 1.01, APTT 29, D-Dimer High Sensitivty 243, CBC w Diff NO MAN DIFF REQ, RBC 5.15, MCV 96.1 H, MCH 32.9 H, MCHC 34.2, RDW 14.6 H, MPV 8.2, Gran % 78.9 H, Lymphocytes % 15.4 L, Monocytes % 5.0, Eosinophils % 0.5, Basophils % 0.2, Absolute Granulocytes 10.4 H, Absolute Lymphocytes 2.0, Absolute Monocytes 0.7 H, Absolute Eosinophils 0.1, Absolute Basophils 0 Diagnostic Imaging: Viewed by Me: Radiology Read. Discussed w/RAD: Radiology Read. Radiology Impression: PATIENT: CHIDI BA PRESENT AGE: 52 PATIENT ACCOUNT NO: [id number] : 67 LOCATION: [facility] ORDERING PHYSICIAN: Johnson ZAMORA SERVICE DATE: 01/01/18 EXAM TYPE: RAD - XRY-CHEST XRAY, TWO VIEWS EXAMINATION: XR CHEST CLINICAL INFORMATION: Chest pain. COMPARISON: CTA chest 12/20/2017. TECHNIQUE: 2 views of the chest were obtained. FINDINGS: Lungs are clear and well expanded. No focal consolidative disease, pleural effusion, or pneumothorax. The cardiac silhouette and upper mediastinal contours are normal. No acute osseous finding. IMPRESSION: Unremarkable chest radiograph. No consolidative disease or effusion. DICTATED BY : Mohsen Hunt MD DATE/TIME DICTATED:01/01/181046 SHOP STEWARD: REBECCA DATE/TIME TRANSCRIBED:01/01/181046 CONFIDENTIAL, DO NOT COPY WITHOUT APPROPRIATE AUTHORIZATION. <Electronically signed in Other Vendor System> SIGNED BY: Mohsen Hunt MD 01/01/18 1051 Initial ED EKG: normal sinus rhythm, rate (101) (Johnson Xiong) Departure Departure Disposition: STILL A PATIENT Condition: Stable Clinical Impression Primary Impression: Alcohol withdrawal Secondary Impressions: Chest pain with high risk for cardiac etiology Referrals: Nehemias GARCIA,Adalid Borjas (PCP/Family) Departure Forms: Customer Survey General Discharge Information Admission Note Documentation of Exam: Documentation of any treatments & extenuating circumstances including Concerns Regarding Discharge (functional status, medication knowledge or non-compliance, living conditions, etc.) that warrant an admission rather than observation: (Johnson Xiong) Admission Note Spoke With: James GARCIA,Edilma Documentation of Exam: Documentation of any treatments & extenuating circumstances including Concerns Regarding Discharge (functional status, medication knowledge or non-compliance, living conditions, etc.) that warrant an admission rather than observation: [ Serial enzymes, Telemetry. Cardiology consultation (DR. VARSHA CARL), Ativan per YAZAN, social work consultation for outpatient alcohol treatment] PA/ELECTRONIC PUBLISHING SPECIALIST Co-Sign Statement Statement: ED Attending supervision documentation- [X] I saw and evaluated the patient. I have also reviewed all the pertinent lab results and diagnostic results. I agree with the findings and the plan of care as documented in the PA's/ELECTRONIC PUBLISHING SPECIALIST's documentation. [X] I have reviewed the ED Record and agree with the PA's/ELECTRONIC PUBLISHING SPECIALIST's documentation. [] Additions or exceptions (if any) to the PAs/ELECTRONIC PUBLISHING SPECIALIST's note and plan are summarized below: [SEE ABOVE NOTE] (Darleen GARCIA,Chidi Tafoya) Critical Care Note Critical Care Note Critical Care Time: 30-74 min (45) (Roldan ZAMORA,Johnson)
[2018-01-01 09:57] LABS: ABSOLUTE BASOPHIL COUNT 0 /CUMM (0.0-0.2); ABSOLUTE EOSINOPHIL COUNT 0.1 /CUMM (0.0-0.7); ABSOLUTE GRANULOCYTE CT 10.4 /CUMM (1.4-6.5); ABSOLUTE MONOCYTE COUNT 0.7 /CUMM (0.10-0.60); BASOPHIL % 0.2 % (0.0-2.0); EOSINOPHIL % 0.5 % (0-5); GRANULOCYTE % 78.9 % (42.2-75.2); HEMATOCRIT 49.5 % (42-52); MEAN CORPUSCULAR HGB 32.9 PG (27.0-31.0); MEAN CORPUSCULAR HGB CONC 34.2 G/DL (33.0-37.0); MEAN CORPUSCULAR VOLUME 96.1 FL (80.0-94.0); MEAN PLATELET VOLUME 8.2 FL (7.4-10.4); PLATELET COUNT 336 /CUMM (130-400); RBC DISTRIBUTION WIDTH 14.6 % (11.5-14.5); RED BLOOD CELL CT 5.15 /CUMM (4.70-6.10); WHITE BLOOD CELL COUNT 13.2 /CUMM (4.8-10.8)
[2018-01-01 10:03] LABS: PTT 29 SEC (25-37)
[2018-01-01 10:40] VITALS: BP 126/72
--- NOTE | 2018-01-01 10:51 | RADIOLOGY REPORT ---
EXAMINATION: XR CHEST CLINICAL INFORMATION: Chest pain. COMPARISON: CTA chest 12/20/2017. TECHNIQUE: 2 views of the chest were obtained. FINDINGS: Lungs are clear and well expanded. No focal consolidative disease, pleural effusion, or pneumothorax. The cardiac silhouette and upper mediastinal contours are normal. No acute osseous finding. IMPRESSION: Unremarkable chest radiograph. No consolidative disease or effusion.
--- NOTE | 2018-01-01 11:56 | History & Physical ---
Kip Petersen MD 01/01/18 1156: General Information and HPI History of Present Illness: 52-year-old man with past medical history of EtOH abuse/withdrawal/dependence, NSTEMI, hypertension, depression, and extensive oral lesions seen for evaluation of acute onset chest pain. Patient was recently admitted to [facility] from 12/20/17-12/25/17 for evaluation of chest pain where he was found to have an elevated troponin that peaked to 0.70 concerning for a non-ST segment elevation myocardial infarction. He was found to have a guaiac positive stool with extensive oral lesions for which GI, ENT, and dermatology were consulted who felt these lesions represented aphthous ulcers versus ulcerative colitis. Patient was detoxed from alcohol and discharged home with outpatient follow-up with cardiology, ENT, and gastroenterology. Patient reports being awoken from sleep around 7 AM this morning with a 8-10/10 mid chest pressure without radiation that was worse with pressing on his chest and deep breathing. The pain was not positional and not associated with palpitations, heartburn, nausea, vomiting, or shortness of breath. He reports taking "and oxy" that reduces pain to 5/10. He reports drinking a pint of liquor yesterday. For further evaluation of these findings he came to the [place] [facility]. Presently he reports that his pain is still a 5/10 and that he is otherwise comfortable. Review of systems He otherwise denies any headache, fever, chills, blurred/double vision, lightheadedness/dizziness, palpitations, heartburn, orthopnea, PND, shortness of breath, cough, nausea, vomiting, diarrhea, bowel/bladder complaints Objective Vital signs -temp: 97.7-98.6 -HR: 87-104 -RR: 15-18 -SBP: 125-158 -O2: 92-100% on room air Physical exam -Gen.: Well-developed, disheveled middle-aged man in no acute distress -HEENT: NCAT, PERRLA, EOMI, anicteric sclera, extensive oral lesions with a yellow/gra on hard palate and oropharynx with associated erythema and no drainage, nasal cannula in place -Neck: Supple, no JVD, trachea midline, no accessory respiratory muscle use -Cardio: Normal S1/S2 without murmurs/gallops/rubs; regular rate and rhythm -Pulmonary: Clear to auscultation bilaterally -Abdomen: Soft, nontender, nondistended, bowel sounds intact -Neuro: Awake and alert, cranial nerve II through XII grossly intact, anxious/ tremulous -Extremity: Normal pulses, no cyanosis, clubbing, or edema Labs/imaging/studies -CBC: WBC 13.2, hemoglobin 16.9, hematocrit 49.5, platelet 336 -BMP: Sodium 141, potassium 4.9, chloride 95, CO2 23, urea 14, creatinine 0.9, anion gap 22 -LFT: Total bilirubin 1.8, AST 83, ALT 78, ALP 125 -Miscellaneous: Troponin <0.01, INR 1.01 -CXR: Unremarkable chest radiograph. No consolidative disease or effusion. -EKG: Sinus tachycardia without ST segment changes -Echocardiogram 12/20/17: LVEF 65% without regional wall motion abnormalities Assessment 52-year-old man with multiple medical problems and recent hospitalization for chest pain seen for evaluation of acute onset chest pain waking him from sleep. Patient has persistent chest pain that is made worse with outpatient of the chest and deep breathing. Patient denies any shortness of breath and is saturating well on 2 L of supplemental oxygen which will be tapered as tolerated. Given his sinus tachycardia and pleuritic resuscitation it is possible patient has a pulmonary embolism but given his otherwise low well's score is unlikely; a d-dimer is to be checked. She did recently have a type II myocardial infarction but now has a normal troponin and a negative EKG. Patient 's chest pain very well may be due to his extensive oral ulcers that may be extending down his esophagus. Cardiology and GI consults are to be placed for further evaluation of this. Patient has leukocytosis with an elevated anion gap of unclear etiology for which a urinalysis and lactic acid are to be checked. Patient may require intravenous fluid hydration. Patient is tremulous on exam and reports only drinking 1 pint of liquor yesterday since his recent hospital discharge. He is to be started on CIWA protocol with Ativan scheduled an additional doses as necessary. Records obtained from [facility] during the most recent hospitalization demonstrated that patient underwent an upper endoscopy that demonstrated ulcerative erosive esophagitis without varices. It is unknown if biopsies were obtained and records will be reviewed. Problem list -Chest pain, possibly due to extensive oral ulcers -EtOH withdrawal -Extensive oral ulcers, aphthous ulcers versus ulcerative colitis -Leukocytosis -Transaminitis -Anion gap metabolic acidosis -Recent type II myocardial infarction -History of EtOH abuse -Hypertension -Depression Plan -Admit to telemetry floor -Telemetry monitoring -TRC with nebs when necessary -Guaiac all stools -Supplemental oxygen, goal >92%, taper as tolerated -CIWA -Ativan 2 mg by mouth every 6 hours -Ativan when necessary per CIWA -Thiamine / Folate / Multivitamin -Continue home meds: Amlodipine, aspirin, atorvastatin, Peridex, metoprolol, nitroglycerin -Cardiology consult for chest pain -GI consult for oral ulcers -Trend troponin/EKG until peak or 3 negative sets -No need for repeat echocardiogram -Check d-dimer, urinalysis and lactic acid -Monitor LFTs -Review records obtained from [facility] to check results of biopsies from EGD -Pain control with acetaminophen and percocet -Healthy diet -DVT prophylaxis with subcutaneous heparin -Full code Allergies/Medications Allergies: Coded Allergies: NO KNOWN ALLERGIES (NONE 01/01/18) Home Med list Amlodipine Besylate 5 MG TABLET 1 TAB PO DAILY HEART (Reported) Aspirin (Aspirin*) 81 MG TAB.CHEW 81 MG PO DAILY [facility] Atorvastatin Calcium 40 MG TABLET 40 MG PO 1700 [facility] [employer] . Chlorhexidine Gluconate (Peridex) 0.12 % MOUTHWASH 15 ML PO TID Oral Ulcers . Folic Acid (Unknown Strength) CAPSULE (Unknown Dose) PO DAILY SUPPLEMENT ( Reported) Lidocaine HCl (Lidocaine HCl Viscous) 2 % SOLUTION 15 ML PO BID Oral Ulcers . Metoprolol Tartrate 50 MG TABLET 50 MG PO BID [employer] . Nitroglycerin (Nitrostat) 0.4 MG TAB.SUBL 0.4 MG SL Q 5 MINUTES X 3 DOSE PRN CHEST PAIN . Oxycodone HCl 5 MG TABLET 5 MG PO Q6-8P PRN PAIN SCALE 7-10 (SEVERE) . Thiamine HCl (B-1) (Unknown Strength) TABLET (Unknown Dose) PO DAILY SUPPLEMENT (Reported) Triamcinolone Acetonide 0.1 % OINT...G. 1 CRISTOFER TOP TID Oral Ulcers . Past History Travel History Traveled to [place] past 21 day No Medical History Neurological: NONE EENT: NONE Cardiovascular: hypertension Respiratory: NONE Gastrointestinal: NONE Hepatic: NONE Renal: NONE Musculoskeletal: TENDINITIS Psychiatric: alcohol dependence, depression Endocrine: NONE Blood Disorders: NONE Cancer(s): NONE [facility]/Reproductive: NONE History of MRSA: No History of VRE: No History of CDIFF: No Surgical History Surgical History: non-contributory Past Family/Social History Psychosocial History ETOH Use: heavy use Review of Systems Review of Systems Constitutional: Reports: see HPI. Exam & Diagnostic Data Last 24 Hrs of Vital Signs/I&O Vital Signs Date Time Temp Pulse Resp B/P B/P Pulse O2 O2 Flow FiO2 Mean Ox Delivery Rate 01/01 1136 98.6 87 18 125/81 01/01 1110 98.6 87 18 125/81 98 Room Air 01/01 1040 98.6 88 15 126/72 01/01 1039 98.6 87 15 12672 98 Nasal 2.0L Cannula 01/01 0954 92 Room Air Room Air 01/01 0951 92 15 142/88 95 Nasal 2.0L Cannula 01/01 0947 90 15 150/95 97 Room Air Room Air 01/01 0930 97.7 104 15 158/97 01/01 0925 97.7 104 15 158/97 100 Room Air Room Air Intake & Output 01/01 1600 01/01 0800 01/01 0000 Intake Total 0 Output Total Balance 0 Intake, Oral 0 Patient 90.718 kg Weight Weight Reported by Patient Measurement Method Assessment/Plan As Ranked By This Provider Problem List: 1. Chest pain 2. EtOH dependence 3. Hard palate ulcer Core Measures/Misc (05/30) Acute Coronary Syndrome ACS Diagnosis: No Congestive Heart Failure Congestive Heart Failure Diagnosis No Cerebrovascular Accident CVA/TIA Diagnosis: No VTE (View Protocol) VTE Risk Factors Age>40 No Mechanical VTE Prophylaxis d/t N/A MechProphylax Ordered No VTE Pharm Prophylaxis d/t NA PharmProphylax ordered Sepsis (View protocol) Sepsis Present: No James GARCIA,Edilma 01/01/18 1638: Attending MD Review Statement Attending Statement Attending MD Statement: examined this patient, discuss w/resident/PA/RIG SUPERVISOR, agreed w/resident/PA/RIG SUPERVISOR, reviewed EMR data (avail), discussed with nursing, reviewed images, amended to note Attending Assessment/Plan: 52 y/o M with pmh sig for EtOH dependence, NSTEMI, hypertension, depression, with recent admition to [facility] from 12/20/17-12/25/17 for evaluation of chest pain where he was found to have an elevated troponin that peaked to 0.70 concerning for a non-ST segment elevation myocardial infarction. Patient was treated with medical management and cardiology evaluate the patient. No significant renal involvement motion of the multiple seen on echo. Patient was discharged for outpatient follow-up with cardiology as well as need for stress test. During the course patient was found to have oral lesions and for that he had an extensive evaluation with ENT, GI as well as dermatology. He also had black bowel movement after he was given and decannulation. GI evaluate the patient and recommended PPI. Patient was also discharged on today presented because he developed chest pain last night. He described it as a pressure and squeezing. It was located substernal area. He was also combining of some shortness of breath. He also drank a point of vodka last night. He claims that since he went home he hasn't had a drink except for last night. Patient was shaking in the emergency room. His first troponin and EKG was negative. Vital Signs Date Time Temp Pulse Resp B/P B/P Pulse O2 O2 Flow FiO2 Mean Ox Delivery Rate 01/01 1505 99.1 96 18 140/92 95 Room Air 01/01 1336 98.8 110 16 118/72 01/01 1334 98.8 110 16 118/72 01/01 1332 98.8 110 18 118/72 97 Room Air Room Air 01/01 1136 98.6 87 18 125/81 01/01 1110 98.6 87 18 125/81 98 Room Air 01/01 1040 98.6 88 15 126/72 01/01 1039 98.6 87 15 126/72 98 Nasal 2.0L Cannula 01/01 0954 92 Room Air Room Air 01/01 0951 92 15 142/88 95 Nasal 2.0L Cannula 01/01 0947 90 15 150/95 97 Room Air Room Air 01/01 0930 97.7 104 15 158/97 01/01 0925 97.7 104 15 158/97 100 Room Air Room Air on exam: aox3, nad. cv; s1, s2, rrr resp; clear abd; soft, nt, bs+ ext; no edema Laboratory Tests 01/01 01/01 01/01 1630 1330 1312 Chemistry Lactic Acid (0.7 - 2.1 mmol/L) 1.4 Troponin I Pending Coagulation D-Dimer High Sensitivty Cancelled 01/01 0940 Chemistry Sodium (137 - 145 mmol/L) 141 Potassium (3.5 - 5.1 mmol/L) 4.9 Chloride (98 - 107 mmol/L) 95 L Carbon Dioxide (22 - 30 mmol/L) 23 Anion Gap (5 - 16) 22 H BUN (9 - 20 mg/dL) 14 Creatinine (0.7 - 1.2 mg/dL) 0.9 Estimated GFR (>60 ml/min) > 60 BUN/Creatinine Ratio (7 - 25 %) 15.6 Glucose (65 - 99 mg/dL) 76 Calcium (8.4 - 10.2 mg/dL) 9.3 Total Bilirubin (0.2 - 1.3 mg/dL) 1.8 H AST (17 - 59 U/L) 83 H ALT (21 - 72 U/L) 78 H Alkaline Phosphatase (< 127 U/L) 125 Troponin I (<0.11 ng/ml) < 0.01 Total Protein (6.3 - 8.2 g/dL) 7.7 Albumin (3.5 - 5.0 g/dL) 4.8 Globulin (1.9 - 4.2 gm/dL) 2.9 Albumin/Globulin Ratio (1.1 - 2.2 %) 1.7 Coagulation PT (9.4 - 12.5 SEC) 11.0 INR (0.90 - 1.17) 1.01 APTT (25 - 37 SEC) 29 D-Dimer High Sensitivty (0 - 243 ng/ml) 243 Hematology CBC w Diff NO MAN DIFF REQ WBC (4.8 - 10.8 /CUMM) 13.2 H RBC (4.70 - 6.10 /CUMM) 5.15 Hgb (14.0 - 18.0 G/DL) 16.9 Hct (42 - 52 %) 49.5 MCV (80.0 - 94.0 FL) 96.1 H MCH (27.0 - 31.0 PG) 32.9 H MCHC (33.0 - 37.0 G/DL) 34.2 RDW (11.5 - 14.5 %) 14.6 H Plt Count (130 - 400 /CUMM) 336 MPV (7.4 - 10.4 FL) 8.2 Gran % (42.2 - 75.2 %) 78.9 H Lymphocytes % (20.5 - 51.1 %) 15.4 L Monocytes % (1.7 - 9.3 %) 5.0 Eosinophils % (0 - 5 %) 0.5 Basophils % (0.0 - 2.0 %) 0.2 Absolute Granulocytes (1.4 - 6.5 /CUMM) 10.4 H Absolute Lymphocytes (1.2 - 3.4 /CUMM) 2.0 Absolute Monocytes (0.10 - 0.60 /CUMM) 0.7 H Absolute Eosinophils (0.0 - 0.7 /CUMM) 0.1 Absolute Basophils (0.0 - 0.2 /CUMM) 0 EKG>> normal sinus rhythm with no acute ST-T wave changes. CXR: IMPRESSION: Unremarkable chest radiograph. No consolidative disease or effusion. A/P; 52 y/o M with pmh sig for EtOH dependence, NSTEMI, hypertension, depression , with recent admition to [facility] this month with chest pain, non-ST elevation AK, episode of heme positive stool, oral lesions in alcohol. Patient is now admitted to telemetry with chest pain as well as acute: Intoxication. Please trend troponins, repeat EKG. Continue the patient on his aspirin, statin and beta aide. Please consult cardiology. Please continue Peridex mouthwash and lidocaine viscous for oral lesions but patient actually claims that these lesions are better and denies any pain in those lesions. Patient will need GI/ENT workup as an outpatient for these lesions. Please start the patient on scheduled and when necessary Ativan per [facility] protocol. Please keep the patient on multivitamin, folate and thiamine. DVT px: Heparin subcutaneous. Patient is a full code.
[2018-01-01] MEDS ORDERED: FOLIC ACID0.8 M1 PO (11:58)
[2018-01-01] MEDS ORDERED: B-1100 MG PO (11:59)
[2018-01-01 13:34] VITALS: BP 118/72
[2018-01-01 15:05] VITALS: BP 140/92
--- NOTE | 2018-01-01 17:56 | Cons- Cardiology ---
General Information and HPI Consulting Request Date of Consult: 01/01/18 Requested By: Edilma Ramirez MD History of Present Illness: This patient is a 52 year old male with history of hypertension and alcohol abuse. He presented to the ER for evaluation a chest discomfort. This pain is a moderate to severe, non-radiating pressure in the lower midsternal region. It is relieved by eating and lying back but it not exacerbated by physical activity. The patient does admit to what he feels is a brackish reflux suggestive of GERD. The discomfort will typically last for about 4 hours at a time before abating and is often preceded by a feeling of shortness of breath. It should be noted that the patient had similar symptoms recently accompanied by a borderline rise in troponin and therefore underwent a cardiac catheterization that was reportedly negative for flow limiting disease. Allergies/Medications Allergies: Coded Allergies: NO KNOWN ALLERGIES (NONE 01/01/18) Home Med List: Amlodipine Besylate 5 MG TABLET 1 TAB PO DAILY HEART (Reported) Aspirin (Aspirin*) 81 MG TAB.CHEW 81 MG PO DAILY [facility] Atorvastatin Calcium 40 MG TABLET 40 MG PO 1700 [employer] . Chlorhexidine Gluconate (Peridex) 0.12 % MOUTHWASH 15 ML PO TID Oral Ulcers . Folic Acid (Unknown Strength) CAPSULE (Unknown Dose) PO DAILY SUPPLEMENT ( Reported) Lidocaine HCl (Lidocaine HCl Viscous) 2 % SOLUTION 15 ML PO BID Oral Ulcers . Metoprolol Tartrate 50 MG TABLET 50 MG PO BID [employer] . Nitroglycerin (Nitrostat) 0.4 MG TAB.SUBL 0.4 MG SL Q 5 MINUTES X 3 DOSE PRN CHEST PAIN . Oxycodone HCl 5 MG TABLET 5 MG PO Q6-8P PRN PAIN SCALE 7-10 (SEVERE) . Thiamine HCl (B-1) (Unknown Strength) TABLET (Unknown Dose) PO DAILY SUPPLEMENT (Reported) Triamcinolone Acetonide 0.1 % OINT...G. 1 CRISTOFER TOP TID Oral Ulcers . Review of Systems Review of Systems: mouth sores Past History Travel History Traveled to [place] past 21 day No Medical History Blood Transfusion Hx: No Neurological: NONE EENT: NONE Cardiovascular: hypertension Respiratory: NONE Gastrointestinal: NONE Hepatic: NONE Renal: NONE Musculoskeletal: TENDINITIS Psychiatric: alcohol dependence, depression Endocrine: NONE Blood Disorders: NONE Cancer(s): NONE SLABBER/Reproductive: NONE Surgical History Surgical History: non-contributory Psychosocial History Smoking Status: Current Everyday Smoker ETOH Use: heavy use Exam & Diagnostic Data Vital Signs and I&O Vital Signs Date Time Temp Pulse Resp B/P B/P Pulse O2 O2 Flow FiO2 Mean Ox Delivery Rate 01/01 1505 99.1 96 18 140/92 95 Room Air 01/01 1336 98.8 110 16 118/72 01/01 1334 98.8 110 16 118/72 01/01 1332 98.8 110 18 118/72 97 Room Air Room Air 01/01 1136 98.6 87 18 125/81 01/01 1110 98.6 87 18 125/81 98 Room Air 01/01 1040 98.6 88 15 126/72 01/01 1039 98.6 87 15 126/72 98 Nasal 2.0L Cannula 01/01 0954 92 Room Air Room Air 01/01 0951 92 15 142/88 95 Nasal 2.0L Cannula 01/01 0947 90 15 150/95 97 Room Air Room Air 01/01 0930 97.7 104 15 158/97 01/01 0925 97.7 104 15 158/97 100 Room Air Room Air Intake & Output 01/01 1600 01/01 0800 01/01 0000 12/31 1600 12/31 0800 12/31 0000 Intake Total 0 Output Total Balance 0 Intake, Oral 0 Patient 200 lb Weight Weight Bed scale Measurement Method Physical Exam: General: WD/WN male in NAD; alert and oriented x 3 HEENT: NC/AT, PERRL, EOMI Neck: no JVD, no carotid bruit Heart: RRR w/o murmur Lungs: clear bilaterally Abdomen: soft, NT, +ve bowel sounds Extremities: no edema Assessment/Plan Assessment/Plan * This patient has very atypical chest pain for myocardial ischemia. He has no electrocardiographic ischemic changes or rise in cardiac enzymes despite prolonged chest pain. In addition, he recently had a cardiac catheterization that was not remarkable for any flow limiting disease as per the patient. I suspect his pain is related to esophagitis or GERD in the setting of his alcohol abuse. It should be noted that small rises in troponin are known to occur in the setting of pancreatitis. He has had elevated lipase levels in the past suggestive of this problem. A couple weeks ago when his troponin was mildly elevated, his amylase and lipase were not checked but I suspect that there may have been an element of pancreatitis at that time that may have caused both the chest discomfort and borderline increased troponin. Check an amylase and lipase today. Begin a PPI. * Continue Metoprolol and his statin. Consult Acknowledgment - Thank you for your consult request.
[2018-01-01 23:07] VITALS: BP 144/94
[2018-01-02 06:24] VITALS: BP 130/90
[2018-01-02 08:15] LABS: ABSOLUTE BASOPHIL COUNT 0 /CUMM (0.0-0.2); ABSOLUTE EOSINOPHIL COUNT 0.2 /CUMM (0.0-0.7); ABSOLUTE GRANULOCYTE CT 5.5 /CUMM (1.4-6.5); ABSOLUTE LYMPH COUNT 1.1 /CUMM (1.2-3.4); ABSOLUTE MONOCYTE COUNT 0.3 /CUMM (0.10-0.60); BASOPHIL % 0.6 % (0.0-2.0); EOSINOPHIL % 3.3 % (0-5); GRANULOCYTE % 76.1 % (42.2-75.2); MEAN CORPUSCULAR HGB CONC 34.2 G/DL (33.0-37.0); MEAN CORPUSCULAR VOLUME 96.4 FL (80.0-94.0); MEAN PLATELET VOLUME 8.6 FL (7.4-10.4); PLATELET COUNT 245 /CUMM (130-400); RED BLOOD CELL CT 4.77 /CUMM (4.70-6.10); WHITE BLOOD CELL COUNT 7.2 /CUMM (4.8-10.8)
--- NOTE | 2018-01-02 08:17 | PN- Housestaff ---
Kip Petersen MD 01/02/18 0816: Subjective Follow-up For: Chest pain Oral ulcers alcohol detox Subjective: Patient seen and examined. He is seen pacing the halls looking anxious and tremulous. He appears to be in no acute distress. He states "who do I have to talk to to get out of here?". He is requesting to leave. He reports no new complaints. Review of Systems Constitutional: Reports: see HPI. Objective Last 24 Hrs of Vital Signs/I&O Vital Signs Date Time Temp Pulse Resp B/P B/P Pulse O2 O2 Flow FiO2 Mean Ox Delivery Rate 01/02 0624 97.9 94 20 130/90 98 Room Air 01/01 2307 99.6 98 18 144/94 97 Room Air 01/01 2142 Room Air Room Air 01/01 2110 102 01/01 1505 99.1 96 18 140/92 95 Room Air 01/01 1336 98.8 110 16 118/72 01/01 1334 98.8 110 16 118/72 01/01 1332 98.8 110 18 118/72 97 Room Air Room Air 01/01 1136 98.6 87 18 125/81 01/01 1110 98.6 87 18 125/81 98 Room Air 01/01 1040 98.6 88 15 126/72 01/01 1039 98.6 87 15 126/72 98 Nasal 2.0L Cannula Intake & Output 01/02 1600 01/02 0800 01/02 0000 Intake Total 121 110.5 Output Total Balance 121 110.5 Intake, IV 21 10.5 Intake, Oral 100 100 Physical Exam General Appearance: Alert, Oriented X3, Cooperative, No Acute Distress Other Physical Findings: -Gen.: Well-developed, disheveled middle-aged man in no acute distress -HEENT: NCAT, PERRLA, EOMI, anicteric sclera, extensive oral lesions with a yellow/gra on hard palate and oropharynx with associated erythema and no drainage, nasal cannula in place -Neck: Supple, no JVD, trachea midline, no accessory respiratory muscle use -Cardio: Normal S1/S2 without murmurs/gallops/rubs; regular rate and rhythm -Pulmonary: Clear to auscultation bilaterally -Abdomen: Soft, nontender, nondistended, bowel sounds intact -Neuro: Awake and alert, cranial nerve II through XII grossly intact, anxious/ tremulous -Extremity: Normal pulses, no cyanosis, clubbing, or edema Current Medications: Current Medications Sig/[place] Start time Last Medication Dose Route Stop Time Status Admin Acetaminophen 650 MG Q6P PRN 01/01 1245 DCD PO Amlodipine Besylate 0 .STK-MED ONE 01/01 1336 DC PO Amlodipine Besylate 5 MG DAILY 01/01 1307 DCD 01/01 PO 1336 Aspirin 81 MG DAILY 01/02 0900 DCD PO Aspirin 0 .STK-MED ONE 01/01 1013 DC PO Atorvastatin Calcium 40 MG 1700 01/01 1700 DCD 01/01 PO 1610 Chlorhexidine 15 ML TID 01/01 1400 DCD 01/01 Gluconate PO 2110 Folic Acid 0 .STK-MED ONE 01/01 1337 DC PO Folic Acid 1 MG DAILY 01/01 1305 DCD 01/01 PO 1336 Heparin Sodium 5,000 UNIT Q8 01/01 1400 DCD 01/02 (Porcine) SC 0508 Lorazepam 0 Q1P PRN 01/01 2215 DCD 01/02 IV 0558 Lorazepam 0 .STK-MED ONE 01/01 1450 DC .ROUTE Lorazepam 0 .STK-MED ONE 01/01 1335 DC PO Lorazepam 0 Q1P PRN 01/01 1315 DC 01/01 IV 1447 Lorazepam 2 MG Q6 01/01 1303 DCD 01/02 PO 0508 Lorazepam 0 .STK-MED ONE 01/01 1121 DC .ROUTE Lorazepam 2 MG ONE ONE 01/01 1115 DC 01/01 IV 01/01 1116 1119 Metoprolol Tartrate 50 MG BID 01/01 2100 DCD 01/01 PO 2110 Metoprolol Tartrate 0 .STK-MED ONE 01/01 1140 DC PO Metoprolol Tartrate 25 MG ONCE ONE 01/01 1130 DC 01/01 PO 01/01 1131 1136 Morphine Sulfate 0 .STK-MED ONE 01/01 1043 DC .ROUTE Morphine Sulfate 2 MG ONCE ONE 01/01 1015 DC 01/01 IV 01/01 1016 1045 Multivitamins 0 .STK-MED ONE 01/01 1336 DC PO Multivitamins 1 TAB DAILY 01/01 1305 DCD 01/01 PO 1336 Nicotine 14 MG DAILY 01/02 0330 DCD 01/02 TOP 0334 Nitroglycerin 0.4 MG Q 5 MINUTES X 3 DO.. 01/01 1315 DCD SL Omeprazole 40 MG DAILY AC 01/01 1816 DCD 01/02 PO 0508 Oxycodone/ 1 TAB Q6P PRN 01/01 1245 DCD 01/01 Acetaminophen PO 1610 Oxycodone/ 2 TAB Q6P PRN 01/01 1245 DCD Acetaminophen PO Sodium Chloride 1,000 ML BOLUS ONE 01/01 1000 DC 01/01 IV 01/01 1059 1002 Thiamine HCl 0 .STK-MED ONE 01/01 1336 DC PO Thiamine HCl 100 MG DAILY 01/01 1315 DCD 01/01 PO 1336 Last 24 Hrs of Lab/Yash Results Last 24 Hrs of Labs/Mics: Laboratory Tests 01/02/18 0623: Anion Gap 12, Estimated GFR > 60, BUN/Creatinine Ratio 20.0, Magnesium 1.9, Total Bilirubin 2.7 H, Direct Bilirubin 0.4, AST 45, ALT 56, Alkaline Phosphatase 103, Total Protein 6.7, Albumin 3.8, CBC w Diff NO MAN DIFF REQ, RBC 4.77, MCV 96.4 H, MCH 33.0 H, MCHC 34.2, RDW 14.0, MPV 8.6, Gran % 76.1 H, Lymphocytes % 15.8 L, Monocytes % 4.2, Eosinophils % 3.3, Basophils % 0.6, Absolute Granulocytes 5.5, Absolute Lymphocytes 1.1 L, Absolute Monocytes 0.3, Absolute Eosinophils 0.2, Absolute Basophils 0 01/01/18 2212: Troponin I < 0.01 01/01/18 1630: Troponin I < 0.01, Amylase 52, Lipase 408 H 01/01/18 1615: Urine Color YEL, Urine Clarity CLEAR, Urine pH 7.5, Ur Specific [place] 1.020, Urine Protein NEG, Urine Ketones 15 H, Urine Nitrite NEG, Urine Bilirubin NEG, Urine Urobilinogen 2.0 H, Ur Leukocyte Esterase NEG, Ur Microscopic EXAM NOT REQUIRED, Urine Hemoglobin NEG, Urine Glucose NEG 01/01/18 1330: Lactic Acid 1.4 01/01/18 1312: D-Dimer High Sensitivty Cancelled Assessment/Plan Assessment: 52-year-old man with multiple medical problems and recent hospitalization for chest pain seen for evaluation of acute onset chest pain waking him from sleep. Patient is requesting to leave against medical advice. He was maintained on ativan 2 mg by mouth every six hours. His CIWA scores overnight into this morning ranged from 3-10 requiring 2 mg of additional ativan. Patient appears anxious and tremulous but is otherwise oriented to person, place, and time. He was educated that should he go home it is possible that he may have an alcohol withdrawal seizure with possible associated trauma and even . He verbalized understanding of the risks. Patient signed the required paperwork which was witnessed by the nurse. Patient was not provided any prescriptions. He was instructed to return to the ED should his chest pain return or if he develops any new issues. Patient signed out against medical advice. Attending Dr. Edilma Ramirez notified. Problem list -Chest pain, possibly due to extensive oral ulcers -EtOH withdrawal -Extensive oral ulcers, aphthous ulcers versus ulcerative colitis -Leukocytosis -Transaminitis -Anion gap metabolic acidosis -Recent type II myocardial infarction -History of EtOH abuse -Hypertension -Depression Plan -Left against medical advice -Telemetry monitoring -TRC with nebs when necessary -Guaiac all stools -Supplemental oxygen, goal >92%, taper as tolerated -CIWA -Ativan 2 mg by mouth every 6 hours -Ativan when necessary per CIWA -Thiamine / Folate / Multivitamin -Continue home meds: Amlodipine, aspirin, atorvastatin, Peridex, metoprolol, nitroglycerin -Cardiology consult for chest pain -GI consult for oral ulcers -No need for repeat echocardiogram -Review records obtained from [facility] to check results of biopsies from EGD -Pain control with acetaminophen and percocet -Healthy diet -DVT prophylaxis with subcutaneous heparin -Full code Problem List: 1. Chest pain with high risk for cardiac etiology 2. Aphthous ulcer of mouth Pain Ratin Pain Location: Chest Pain Goal: Remain pain free Pain Plan: See assessment Tomorrow's Labs & Rationales: None Edilma Ramirez MD 01/02/18 1208: Attending MD Review Statement Attending Statement Attending MD Statement: discuss w/resident/PA/GUEST ADVISOR Attending Assessment/Plan: This patient left the hospital before I saw him this morning.
--- NOTE | 2018-01-02 08:23 | Patient Discharge Instructions ---
Discharge Instructions General Discharge Information Special Instructions: You are leaving against medical advice. There is a high risk of having alcohol withdrawal seizures or worsening of your other medical decisions. Please call [phone] or return to the ED should you reconsider your decision or if you develop new problems. Acute Coronary Syndrome Inclusion Criteria At DC or during hospital stay patient has or had the following: ACS DIAGNOSIS No Discharge Core Measures Meds if any: Prescribed or Continued at Discharge Meds if any: NOT Prescribed or Continued at Discharge Congestive Heart Failure Inclusion Criteria At DC or during hospital stay patient has or had the following: CHF DIAGNOSIS No Discharge Core Measures Meds if any: Prescribed or Continued at Discharge Meds if any: NOT Prescribed or Continued at Discharge Cerebrovascular accident Inclusion Criteria At DC or during hospital stay patient has or had the following: CVA/TIA Diagnosis No Discharge Core Measures Meds if any: Prescribed or Continued at Discharge Meds if any: NOT Prescribed or Continued at Discharge Venous thromboembolism Inclusion Criteria VTE Diagnosis No VTE Type NONE VTE Confirmed by (Test) NONE Discharge Core Measures - Per Current guidelines, there needs to be overlap - treatment for the first 5 days of Warfarin therapy. - If discharged on Warfarin prior to 5 days of - overlap therapy, the patient will need to be - assessed for post discharge needs including - *Post discharge parental anticoagulation - *Warfarin and/or parental anticoagulation education - *Follow up date to check INR post discharge At least 5 days overlap therapy as Inpatient No Meds if any: Prescribed or Continued at Discharge Note: Overlap Therapy is Warfarin and Anticoagulant Meds if any: NOT Prescribed or Continued at Discharge
== END 2018-01-02 08:51 | disposition left against medical advice (07) | DRG 313 ==
LOC: ERH 09:19 → ERHI 11:38 → ENRESERV 13:20 → ENTRNSPT 14:33 → EDTRNSPTSTS 14:43 → 1NO 14:56 → CMPTRNSPT 15:01 → ENPENDDIS 01-02 08:25 → 1NO 01-02 08:51
PROVIDERS: Internal Medicine Interventional Cardiology; Physician Assistant Medical
DX: R07.9 Chest pain, unspecified (principal); I25.2 Old myocardial infarction; E87.2 Acidosis; F10.239 Alcohol dependence with withdrawal, unspecified; K12.0 Recurrent oral aphthae; K21.0 Gastro-esophageal reflux disease with esophagitis; D72.829 Elevated white blood cell count, unspecified; F32.9 Major depressive disorder, single episode, unspecified; I10 Essential (primary) hypertension; R00.0 Tachycardia, unspecified; F17.200 Nicotine dependence, unspecified, uncomplicated
CPT/HCPCS: 1NP; 36592; 71046; 81003; 82436; 93005; 93010; 96374; 96375; 96376; 99291; J1644; J3490